=== PATIENT | female | born 1980 | race Caucasian/White ===

== ENCOUNTER 2017-01-12 17:19 | Emergency (ER) | payer OTHER ==
[2017-01-12 17:32] VITALS: BP 113/72
--- NOTE | 2017-01-12 17:50 | EDM.PDOC ---
ED HISTORY OF PRESENT ILLNESS - General Chief Complaint: Chest Pain Stated Complaint: CHEST PN, SOB, 27 WKS PG Time Seen by Provider: 01/12/17 17:45 Source of Information: Reports: Patient History Limitations: Reports: No limitations - History of Present Illness INITIAL COMMENTS - FREE TEXT/NARRATIVE: 36-year-old female presents the ED with a chief complaint of dyspnea. This is mostly on exertion but that time she feels that she can't get a deep breath initiation he develops a mild type headache that lasts only a few moments. Just arrest for short periods of time and can carry on. Note she is approximately 28 weeks gestation. This is 2 para one. No other complications of the . No history of DVT. Denies cough or sputum production no fever or chills. Reports asthma as a child but has not had use an inhaler for many years. No recent upper respiratory tract infections. Symptom Onset Date: 01/10/17 Timing/Duration: Reports: Day(s):, Getting worse, Gradual onset (Gradual onset over the last several days.) Severity: mild Location, General: Reports: chest (Just a subjective sense of shortness of breath. This can be at rest at x2. She really has no chest pain per se. Particularly no pleuritic chest pain.) Quality: Reports: Other (Subjective dyspnea.) Improves with: Reports: Rest Worsens with: Reports: Movement Context, General: Reports: Other (28 week gestation .). Denies: Activity, Exercise, Lifting, Sick contact, Trauma Associated Symptoms (General): Reports: shortness of breath. 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 (see below) (See history of present illness) - Related Data Allergies/ADRs: Allergies Allergy/AdvReac Type Severity Reaction Status Date / Time Penicillins Allergy Hives Verified 01/12/17 17:24 Home Meds: Home Meds Escitalopram Oxalate [Lexapro] 20 mg PO DAILY 02/05/14 [History] Famciclovir [Famvir] 3 tab PO ONETIME 09/16/16 [History] LORazepam [Ativan] 1 mg PO TID PRN 09/16/16 [History] Pnv95/Iron Fum/Folic Acid [ Caplet] 1 each PO DAILY 09/16/16 [History] Polyethylene Glycol 3350 [MiraLAX] 17 gm PO DAILY 09/16/16 [History] Past Medical History : 2 Para: 1 - Past Surgical History HEENT Surgical History: Reports: LASIK, Tonsillectomy Female Surgical History: Reports: section, Cystectomy Social & Family History - Tobacco Use Smoking Status *Q: Never Smoker Second Hand Smoke Exposure: No - Caffeine Use Caffeine Use: Reports: Soda - Alcohol Use Days Per Week of Alcohol Use: 0 - Recreational Drug Use Recreational Drug Use: No - Living Situation & Occupation Living situation: Reports: Occupation: employed ED ROS GENERAL - Review of Systems Review Of Systems: See Below Constitutional: Reports: fatigue. Denies: fever, chills, malaise, weakness, decreased appetite, weight loss HEENT: Reports: No symptoms Respiratory: Reports: Shortness of Breath. Denies: Wheezing, Pleuritic Chest Pain, Cough, Sputum, Hemoptysis, Other Cardiovascular: Reports: Blood pressure problem, Dyspnea on exertion. Denies: Chest pain, Claudication (Blood pressure runs low.), Edema, Lightheadedness, Orthopnea, Palpitations, PND, Syncope (Mild) Endocrine: Reports: fatigue GI/Abdominal: Reports: No symptoms : Reports: no symptoms Musculoskeletal: Reports: no symptoms Skin: Reports: no symptoms Neurological: Reports: No Symptoms Psychiatric: Reports: No symptoms Hematologic/Lymphatic: Reports: no symptoms Immunologic: Reports: no symptoms ED EXAM, GENERAL - Physical Exam Exam: See Below Exam Limited By: No limitations General Appearance: alert, WD/WN, no apparent distress, anxious, other (Vital signs are normal with O2 sats 98% on room air. BP 113/72. Respiratory to 14.) Eye Exam: bilateral eye: normal inspection Throat/Mouth: Normal inspection, Normal lips, Normal oropharynx Head: atraumatic, normocephalic Neck: normal inspection, supple, non-tender, full range of motion. No: lymphadenopathy (L), lymphadenopathy (R) Respiratory/Chest: no respiratory distress, lungs clear, normal breath sounds, no accessory muscle use, chest non-tender. No: respiratory distress Cardiovascular: normal peripheral pulses, regular rate, rhythm, no edema, no gallop, no murmur Peripheral Pulses: 2+: posterior tibial (L), posterior tibial (R), dorsalis pedis (L), dorsalis pedis (R) GI/Abdominal: normal bowel sounds, soft, non tender, no organomegaly, no distention Back Exam: normal inspection, full range of motion, decreased range of motion, paraspinal tenderness (She has pain over the right thoracic 8 rib head area.). No: CVA tenderness (L), CVA tenderness (R) Extremities: normal inspection, normal range of motion, non-tender, no pedal edema, normal capillary refill, other (Calves are nontender and nonswollen with no edema. No evidence of lower extremity DVT.) Neurological: alert, oriented, CN II-XII intact, normal cognition Psychiatric: normal affect, normal mood Skin Exam: Warm, Dry, Intact, Normal color, No rash Course - Vital Signs Last Recorded V/S: Last Vital Signs Temp 36.4 C 01/12/17 17:27 Pulse 66 01/12/17 17:27 Resp 14 01/12/17 17:27 BP 113/72 01/12/17 17:27 Pulse Ox 98 01/12/17 17:27 - Orders/Labs/Meds Orders: Active Orders 24 hr Category Date Time Status DD [D-DIMER QUANTITATIVE] [COAG] Stat Lab 01/12/17 17:58 Received Labs: Laboratory Tests 01/12/17 01/12/17 Range/Units 17:58 17:58 WBC 14.26 H (3.98-10.04) K/mm3 RBC 3.54 L (3.98-5.22) M/mm3 Hgb 11.2 (11.2-15.7) gm/L Hct 33.4 L (34.1-44.9) % MCV 94.4 (79.4-94.8) fl MCH 31.6 (25.6-32.2) pg MCHC 33.5 (32.2-35.5) g/dl RDW Std Deviation 43.3 (36.4-46.3) fL Plt Count 246 (182-369) K/mm3 MPV 10.1 (9.4-12.3) fl Neutrophils % (Manual) 61 H (40-60) % Band Neutrophils % 0 (0-10) % Lymphocytes % (Manual) 22 (20-40) % Atypical Lymphs % 0 % Monocytes % (Manual) 16 H (2-10) % Eosinophils % (Manual) 1 (0.7-5.8) % Basophils % (Manual) 0 L (0.1-1.2) Platelet Estimate Adequate Plt Morphology Comment Normal Poikilocytosis 1+ slight Anisocytosis 1+ slight Macrocytosis 1+ slight Tear Drop Cells 1+ slight RBC Morph Comment Abnormal Sodium 136 (136-145) mEq/L Potassium 3.7 (3.5-5.1) mEq/L Chloride 102 (98-107) mEq/L Carbon Dioxide 23 (21-32) mEq/L Anion Gap 14.7 (5-15) BUN 10 (7-18) mg/dL Creatinine 0.7 (0.55-1.02) mg/dL Est Cr Clr Drug Dosing 117.23 mL/min Estimated GFR (MDRD) > 60 (>60) mL/min BUN/Creatinine Ratio 14.3 (14-18) Glucose 110 H (74-106) mg/dL Calcium 9.0 (8.5-10.1) mg/dL Total Bilirubin 0.2 (0.2-1.0) mg/dL AST 17 (15-37) U/L ALT 23 (14-59) U/L Alkaline Phosphatase 83 (46-116) U/L Total Protein 6.5 (6.4-8.2) g/dl Albumin 2.8 L (3.4-5.0) g/dl Globulin 3.7 gm/dL Albumin/Globulin Ratio 0.8 L (1-2) - Radiology Interpretation Free Text/Narrative:: 36-year-old female who is 28 weeks gestation presents the ED with subjective sensation of dyspnea. This time she just can't get enough air. She feels she has to stop and take extra breaths and it does develop a transient headache sometimes the last only a few moments. No cough no sputum production no fever no chills. Examination of the chest shows air entry to both lung recinos without any adventitial sounds. Heart was sinus no murmurs identified. Vital signs are all normal with a O2 sat 98% on room air respiratory to 14 blood pressure 113/ 72 heart rate of 80. I suspect she is just feeling more short of breath probably probably would do to the pressure of the elevated fundus on the diaphragm. However will have routine labs performed and a d-dimer. - Re-Assessments/Exams Free Text/Narrative Re-Assessment/Exam: 01/12/17 18:40 labs reveal an elevated white count at 14.26 with normal differential 61%. This is normal in . Hemoglobin is low 11.2 again normal in HEENT hematocrit 33.4. Glucose 110 albumin fraction slightly low at 2.8. Renal function normal. D-dimer is still pending, recognizing that it is for the most part not very utile in . Departure - Departure Time of Disposition: 18:49 Disposition: Home, Self-Care 01 Condition: fair Clinical Impression: Second trimester , Dyspnea or other respiratory complaints Forms: ED Department Discharge Additional Instructions: Evaluation James today in regards to subjective sensation of being short of breath and having to take extra breaths periodically. This is in concert with being 28 weeks . Examination of the heart and lungs revealed no abnormalities. Lab work also revealed only minimal anemia with a hemoglobin of 11.2 which is lower limit of normal in . No other abnormalities were identified to cause you to become more short of breath. I suspect it is the itself with pushing up on the diaphragm shortening of the ability of the lungs to expand at times and an intermittent need to take extra breaths to maintain oxygen levels in your blood. I suspect the subjective dyspnea sensation will continue until the end of the . Followup with your OB/ SET ILLUSTRATOR if any other problems develop. - My Orders Last 24 Hours: My Active Orders 01/12/17 17:58 DD [D-DIMER QUANTITATIVE] [COAG] Stat - Assessment/Plan Last 24 Hours: My Active Orders 01/12/17 17:58 DD [D-DIMER QUANTITATIVE] [COAG] Stat
== END 2017-01-12 19:05 | disposition home or self-care (01) ==
LOC: JD.ED 17:19
DX: O99.89 Other specified diseases and conditions complicating pregnancy, childbirth and the puerperium (principal); R06.00 Dyspnea, unspecified; Z3A.28 28 weeks gestation of pregnancy; Z98.890 Other specified postprocedural states; Z79.899 Other long term (current) drug therapy; Z88.0 Allergy status to penicillin
CPT/HCPCS: 36415; 80053; 85025; 85379; 99283; 99285

== ENCOUNTER 2017-04-07 05:47 | Inpatient (IN) | payer OTHER ==
[~2017-04-07 05:47] MED LIST: Citric Acid/Sodium Citrate Solution 30 ML Cup PO ONE; Lactated Ringers 1,000 ML IV SCH; Metoclopramide 10 MG/2 ML SDV IVPUSH ONE; Oxytocin/Lactated Ringers 10 UNIT/1,000 ML BAG IV SCH; Sodium Chloride 0.9% 10 ML Syringe FLUSH PRN; ceFAZolin 2 GM in Premix Bag 1 BAG IV ONE
[2017-04-07] MEDS ORDERED: Bupivacaine 0.5% 30 ML SDV ONE (06:58)
[2017-04-07] MEDS ORDERED: Morphine PF 10 MG/10 ML SDV ONE (07:00)
[2017-04-07] MEDS ORDERED: ceFAZolin 1 GM Vial ONE (07:00)
[2017-04-07] MEDS ORDERED: Lactated Ringers 1,000 ML ONE ×2 (07:00→08:32)
[2017-04-07] MEDS ORDERED: Ondansetron 4 MG/2 ML SDV ONE (07:00)
--- NOTE | 2017-04-07 07:17 | PCM.PREANE ---
Preanesthetic Assessment - Anesthesia/Transfusion/Family Hx Anesthesia History: Prior Anesthesia Without Reaction Type of Anesthesia Reaction: Unknown Family History of Anesthesia Reaction: No Transfusion History: No Prior Transfusion(s) - Review of Systems General: No Symptoms Pulmonary: Other (seasonal allergies, takes singulair) Cardiovascular: No Symptoms Gastrointestinal: No symptoms, Other (heartburn with ) Neurological: No Symptoms Other: Reports: Anxiety - Physical Assessment NPO Status Date: 04/07/17 NPO Status Time: 00:01 Pulse: 64 O2 Sat by Pulse Oximetry: 96 Respiratory Rate: 16 Blood Pressure: 112/71 Height: 1.75 m Weight: 85.729 kg ASA Class: 2 Mental Status: Alert & Oriented x3 Airway Class: Mallampati = 2 Dentition: Reports: Normal Dentition Thyro-Mental Finger Breadths: 3 Mouth Opening Finger Breadths: 3 ROM/Head Extension: Full Lungs: Clear to auscultation, Normal respiratory effort Cardiovascular: Regular Rate, Regular Rhythm - Lab Values: Laboratory Last Values WBC 9.90 K/mm3 (3.98-10.04) 04/06/17 11:48 RBC 3.77 M/mm3 (3.98-5.22) L 04/06/17 11:48 Hgb 11.5 gm/L (11.2-15.7) 04/06/17 11:48 Hct 34.9 % (34.1-44.9) 04/06/17 11:48 MCV 92.6 fl (79.4-94.8) 04/06/17 11:48 MCH 30.5 pg (25.6-32.2) 04/06/17 11:48 MCHC 33.0 g/dl (32.2-35.5) 04/06/17 11:48 RDW Std Deviation 41.8 fL (36.4-46.3) 04/06/17 11:48 Plt Count 221 K/mm3 (182-369) 04/06/17 11:48 MPV 11.6 fl (9.4-12.3) 04/06/17 11:48 Neut % (Auto) 65.4 % (34.0-71.1) 04/06/17 11:48 Lymph % (Auto) 18.9 % (19.3-51.7) L 04/06/17 11:48 Taney % (Auto) 14.1 % (4.7-12.5) H 04/06/17 11:48 Eos % (Auto) 0.6 (0.7-5.8) L 04/06/17 11:48 Baso % (Auto) 0.2 % (0.1-1.2) 04/06/17 11:48 Neut # (Auto) 6.47 K/mm3 (1.56-6.13) H 04/06/17 11:48 Lymph # (Auto) 1.87 K/mm3 (1.18-3.74) 04/06/17 11:48 Taney # (Auto) 1.40 K/mm3 (0.24-0.36) H 04/06/17 11:48 Eos # (Auto) 0.06 K/mm3 (0.04-0.36) 04/06/17 11:48 Baso # (Auto) 0.02 K/mm3 (0.01-0.08) 04/06/17 11:48 Blood Type A POSITIVE 04/06/17 11:48 Gel Antibody Screen Negative 04/06/17 11:48 - Allergies Allergies/Adverse Reactions: Allergies Allergy/AdvReac Type Severity Reaction Status Date / Time Penicillins Allergy Hives Verified 01/12/17 17:24 - Blood Blood Available: No Product(s) Available: None - Anesthesia Plan Pre-Op Medication Ordered: None - Acknowledgements Anesthesia Type Planned: Spinal Pt an Appropriate Candidate for the Planned Anesthesia: Yes Alternatives and Risks of Anesthesia Discussed w Pt/Guardian: Yes Pt/Guardian Understands and Agrees with Anesthesia Plan: Yes PreAnesthesia Questionnaire - Past Surgical History Female Surgical History: Reports: Section, Cystectomy - SUBSTANCE USE Smoking Status *Q: Never Smoker Second Hand Smoke Exposure: No Days Per Week of Alcohol Use: 0 Recreational Drug Use History: No - HOME MEDS Home Medications: Home Meds Escitalopram Oxalate [Lexapro] 20 mg PO DAILY 02/05/14 [History] Famciclovir [Famvir] 3 tab PO ONETIME 09/16/16 [History] LORazepam [Ativan] 1 mg PO TID PRN 09/16/16 [History] Pnv95/Iron Fum/Folic Acid [ Caplet] 1 each PO DAILY 09/16/16 [History] Polyethylene Glycol 3350 [MiraLAX] 17 gm PO DAILY 09/16/16 [History] - CURRENT (IN HOUSE) MEDS Current Meds: Current Medications Lactated Ringer's (Ringers, Lactated) 1,000 mls @ 125 mls/hr IV ASDIRECTED [facility] Last Admin: 04/07/17 06:57 Dose: 125 mls/hr Oxytocin/Lactated Ringer's (Pitocin In Lr 10 Units/1,000 Ml) 10 unit in 1,000 mls @ 100 mls/hr IV ASDIRECTED [facility] PRN Reason: Protocol Sodium Chloride (Saline Flush) 10 ml FLUSH ASDIRECTED PRN PRN Reason: Keep Vein Open Discontinued Medications Bupivacaine HCl (Marcaine 0.5%) Confirm Administered Dose 30 ml .ROUTE .STK-MED ONE Stop: 04/07/17 06:59 Cefazolin Sodium (Ancef) Confirm Administered Dose 2 gm .ROUTE .STK-MED ONE Stop: 04/07/17 07:01 Citric Acid/Sodium Citrate (Bicitra Solution) 30 ml PO ONETIME ONE Stop: 04/07/17 03:04 Cefazolin Sodium/Dextrose 2 gm (/ Premix) 50 mls @ 100 mls/hr IV ONETIME ONE Stop: 04/07/17 03:32 Lactated Ringer's (Ringers, Lactated) Confirm Administered Dose 1,000 mls @ as directed .ROUTE .STK-MED ONE Stop: 04/07/17 07:01 Metoclopramide HCl (Reglan) 10 mg IVPUSH ONETIME ONE Stop: 04/07/17 03:04 Morphine Sulfate (Duramorph Pf) Confirm Administered Dose 10 mg .ROUTE .STK-MED ONE Stop: 04/07/17 07:01 Ondansetron HCl (Zofran) Confirm Administered Dose 4 mg .ROUTE .STK-MED ONE Stop: 04/07/17 07:01
[2017-04-07] MEDS ORDERED: fentaNYL 100 MCG/2 ML SDV IVPUSH PRN (07:18)
[2017-04-07] MEDS ORDERED: Ondansetron 4 MG/2 ML SDV IVPUSH PRN (07:18)
[2017-04-07] MEDS ORDERED: Citric Acid/Sodium Citrate Solution 30 ML Cup ONE (07:46)
[2017-04-07] MEDS ORDERED: Metoclopramide 10 MG/2 ML SDV ONE (07:46)
[2017-04-07] MEDS ORDERED: Oxytocin 10 Units/1 ML SDV ONE (08:32)
[2017-04-07] MEDS ORDERED: ePHEDrine 50 MG/ML SDV IVPUSH PRN (08:57)
[2017-04-07] MEDS ORDERED: Ketorolac 30 MG/ML SDV IVPUSH ONE (08:57)
[2017-04-07] MEDS ORDERED: diphenhydrAMINE 50 MG/ML SDV IVPUSH PRN (08:57)
[2017-04-07] MEDS ORDERED: Lanolin 100% Cream 7 GM Tube TOP PRN (08:57)
[2017-04-07] MEDS ORDERED: Naloxone 0.4 MG/ML SDV IVPUSH PRN (08:57)
[2017-04-07] MEDS ORDERED: Witch Hazel Medicated Pads 100/Jar TOP PRN (08:57)
--- NOTE | 2017-04-07 08:57 | PCM.POSTAN ---
POST ANESTHESIA ASSESSMENT - MENTAL STATUS Mental Status: alert, oriented - VITAL SIGNS Pulse Rate: 61 SaO2: 93 Resp Rate: 16 Blood Pressure: 101/48 Temperature: 36.7 C - RESPIRATORY Respiratory Status: respiratory rate WNL, airway patent, O2 saturation stable - CARDIOVASCULAR CV Status: pulse rate WNL, blood pressure stable - GASTROINTESTINAL GI Status: no symptoms - PAIN Pain Score: 0 - POST OP HYDRATION Hydration Status: adequate & stable
[2017-04-07] MEDS ORDERED: Dextrose 5%-Lactated Ringers 1,000 ML IV SCH (09:00)
[2017-04-07] MEDS ORDERED: Dextrose 5%-0.45% NaCl 1,000 ML IV SCH (09:00)
--- NOTE | 2017-04-07 09:07 | PCM.OPNOTE ---
- General Post-Op/Procedure Note Date of Surgery/Procedure: 04/07/17 Operative Procedure(s): repeat section Findings: viable male, APGARS 7/9, normal uterus tubes and ovaries, 7#14 oz Pre Op Diagnosis: prior . Term . Post-Op Diagnosis: Same Anesthesia Technique: Spinal Primary Surgeon: Ana Ibarra Anesthesia Provider: Nancy Salazar Fluid Replacement, Intraop: 2,200 Output, Urine Amount: 125 EBL in mLs: 750 Complications: None Condition: Good Free Text/Narrative:: The patient was taken to the operating room where epidural anesthesia was dosed to surgical levels without difficulty. The patient was prepped and draped in the usual sterile fashion in the dorsal supine position with a leftward tilt. A Pfannenstiel skin incision was made with the scalpel and carried through to the underlying layer of fascia. The fascia was incised in the midline and extended laterally using Angeles scissors. Yayo clamps were used to elevate the superior aspect of the fascial incision, which was elevated, and the underlying rectus muscles were dissected off bluntly and using Angeles scissors. Attention was then turned to the inferior aspect of the fascial incision, which in similar fashion was grasped with Yayo clamps, elevated, and the underlying rectus muscles were dissected off bluntly and using the angeles. The rectus muscles were dissected in the midline. The peritoneum was entered bluntly; this incision was extended superiorly and inferiorly with good visualization of the bladder. The bladder blade was inserted. The vesicouterine peritoneum was identified and entered sharply using Metzenbaum scissors. This incision was extended laterally and the bladder flap was created digitally. The bladder blade was reinserted. The lower uterine segment was incised in a transverse fashion using the scalpel and with digital traction. Clear fluid was noted. The was subsequently delivered by flexing the head to the incision. Body and shoulders followed without difficulty. The cord was clamped and cut. The infant was subsequently handed to the awaiting applications support lead whose presence had been requested.. The placenta was delivered spontaneously intact with a three-vessel cord noted. The uterus was exteriorized and cleared of all clots and debris. The uterine incision was repaired in 2 layers using 0 monocryl. Hemostasis was visualized. Hemostasis was visualized bilaterally. The uterus was returned to the abdomen. The uterine incision was reexamined and it was noted to be hemostatic. The pelvis was copiously irrigated. The fascia was closed with 1 PDS suture, and the skin was closed with 3-0 monocryl. Sponge, lap, and instrument counts were correct x2. The patient was stable at the completion of the procedure and was subsequently transferred to the recovery room in stable condition.
[2017-04-07] MEDS: diphenhydrAMINE 50 MG/ML SDV IVPUSH PRN (12:59)
[2017-04-07] MEDS: Ketorolac 30 MG/ML SDV IVPUSH SCH ×2 (15:14→21:36)
[2017-04-08] MEDS: diphenhydrAMINE 50 MG/ML SDV IVPUSH PRN (01:47)
[2017-04-08] MEDS: Ketorolac 30 MG/ML SDV IVPUSH SCH (03:40)
[2017-04-08] MEDS: Docusate Sodium 100 MG Cap PO PRN (08:07)
[2017-04-08] MEDS: Acetaminophen/oxyCODONE 325-5 MG Tab PO PRN ×4 (08:07→22:31)
--- NOTE | 2017-04-08 09:16 | PCM48HPAN ---
Post Anesthesia Note - EVALUATION WITHIN 48HRS OF ANESTHETIC Vital Signs in Normal Range: Yes Patient Participated in Evaluation: Yes Respiratory Function Stable: Yes Airway Patent: Yes Cardiovascular Function Stable: Yes Hydration Status Stable: Yes Pain Control Satisfactory: Yes Nausea and Vomiting Control Satisfactory: Yes Mental Status Recovered: Yes
[2017-04-08] MEDS ORDERED: LORazepam 1 MG Tab PO ONE (12:30)
[2017-04-08] MEDS: Ibuprofen 600 MG Tab PO PRN ×2 (16:46→22:52)
[2017-04-09] MEDS: Acetaminophen/oxyCODONE 325-5 MG Tab PO PRN ×4 (03:37→21:11)
[2017-04-09] MEDS: Ibuprofen 600 MG Tab PO PRN ×3 (04:54→19:12)
[2017-04-09] MEDS: Simethicone 80 MG Tab.Chew PO PRN ×3 (08:49→21:19)
[2017-04-09] MEDS: Docusate Sodium 100 MG Cap PO PRN ×2 (08:49→21:19)
[2017-04-10] MEDS: Acetaminophen/oxyCODONE 325-5 MG Tab PO PRN ×3 (02:05→10:59)
--- NOTE | 2017-04-10 07:04 | PCM.PNPP ---
- General Info Date of Service: 04/08/17 Functional Status: Reports: pain controlled - Review of Systems General: Reports: No Symptoms HEENT: Reports: no symptoms Pulmonary: Reports: no symptoms Cardiovascular: Reports: No Symptoms Gastrointestinal: Reports: No symptoms Genitourinary: Reports: no symptoms Musculoskeletal: Reports: no symptoms Skin: Reports: no symptoms Neurological: Reports: No Symptoms Psychiatric: Reports: no symptoms - General Info Date of Service: 04/08/17 - Patient Data Vital Signs - most recent: Last Vital Signs Temp 36.7 C 04/10/17 06:45 Pulse 64 04/10/17 06:45 Resp 15 04/10/17 06:45 BP 122/81 04/10/17 06:45 Pulse Ox 97 04/10/17 06:45 Weight - most recent: 85.729 kg Med Orders - Current: Current Medications Diphenhydramine HCl (Benadryl) 25 mg IVPUSH Q6H PRN PRN Reason: Itching or Nausea Docusate Sodium (Colace) 100 mg PO Q12H PRN PRN Reason: Constipation Last Admin: 04/09/17 21:19 Dose: 100 mg Emollient Ointment (Lansinoh Hpa) 0 gm TOP ASDIRECTED PRN PRN Reason: Sore Nipples Last Admin: 04/09/17 09:42 Dose: 1 applic Ephedrine Sulfate (Ephedrine Sulfate) 5 mg IVPUSH SEECOMMENT PRN PRN Reason: Other Ibuprofen (Motrin) 600 mg PO Q6H PRN PRN Reason: mild pain or fever Last Admin: 04/09/17 19:12 Dose: 600 mg Naloxone HCl (Narcan) 0.1 mg IVPUSH SEECOMMENT PRN PRN Reason: Respiratory Depression Ondansetron HCl (Zofran) 4 mg IVPUSH ONETIME PRN PRN Reason: Nausea/Vomiting Oxycodone/Acetaminophen (Percocet 325-5 Mg) 1 - 2 tab PO Q4H PRN PRN Reason: Pain Last Admin: 04/10/17 02:05 Dose: 2 tab Simethicone (Simethicone) 80 mg PO ASDIRECTED PRN PRN Reason: Gas Last Admin: 04/09/17 21:19 Dose: 80 mg Witch Britney (Tucks) 1 pad TOP ASDIRECTED PRN PRN Reason: Perineal Comfort Measure Discontinued Medications Bupivacaine HCl (Marcaine 0.5%) Confirm Administered Dose 30 ml .ROUTE .[facility] ONE Stop: 04/07/17 06:59 Last Admin: 04/07/17 08:06 Dose: 20 ml Cefazolin Sodium (Ancef) Confirm Administered Dose 2 gm .ROUTE .[facility] ONE Stop: 04/07/17 07:01 Citric Acid/Sodium Citrate (Bicitra Solution) 30 ml PO ONETIME ONE Stop: 04/07/17 03:04 Last Admin: 04/07/17 08:02 Dose: Not Given Citric Acid/Sodium Citrate (Bicitra Solution) Confirm Administered Dose 30 ml .ROUTE .[facility] ONE Stop: 04/07/17 07:47 Last Admin: 04/07/17 08:03 Dose: Not Given Diphenhydramine HCl (Benadryl) 25 mg IVPUSH Q6H PRN PRN Reason: itching Last Admin: 04/08/17 01:47 Dose: 25 mg Fentanyl (Sublimaze) 50 mcg IVPUSH Q5M PRN PRN Reason: pain Stop: 04/07/17 10:00 Lactated Ringer's (Ringers, Lactated) 1,000 mls @ 125 mls/hr IV ASDIRECTED [facility] Last Admin: 04/07/17 06:57 Dose: 125 mls/hr Oxytocin/Lactated Ringer's (Pitocin In Lr 10 Units/1,000 Ml) 10 unit in 1,000 mls @ 100 mls/hr IV ASDIRECTED [facility] PRN Reason: Protocol Cefazolin Sodium/Dextrose 2 gm (/ Premix) 50 mls @ 100 mls/hr IV ONETIME ONE Stop: 04/07/17 03:32 Last Admin: 04/07/17 08:02 Dose: Not Given Lactated Ringer's (Ringers, Lactated) Confirm Administered Dose 1,000 mls @ as directed .ROUTE .[facility] ONE Stop: 04/07/17 07:01 Lactated Ringer's (Ringers, Lactated) Confirm Administered Dose 1,000 mls @ as directed .ROUTE .[facility] ONE Stop: 04/07/17 08:33 Dextrose/Sodium Chloride (Dextrose 5%-1/2 Ns) 1,000 mls @ 125 mls/hr IV ASDIRECTED [facility] Dextrose/Lactated Ringer's (Dextrose 5%-Lactated Ringers) 1,000 mls @ 125 mls/ hr IV ASDIRECTED [facility] Stop: 04/07/17 16:59 Last Admin: 04/07/17 14:27 Dose: 125 mls/hr Ketorolac Tromethamine (Toradol) 30 mg IVPUSH ONETIME ONE Stop: 04/07/17 08:58 Last Admin: 04/07/17 09:04 Dose: 30 mg Ketorolac Tromethamine (Toradol) 30 mg IVPUSH Q6H [facility] Stop: 04/08/17 03:01 Last Admin: 04/08/17 03:40 Dose: 30 mg Lorazepam (Ativan) 1 mg PO ONETIME ONE Stop: 04/08/17 12:31 Last Admin: 04/08/17 12:32 Dose: 1 mg Metoclopramide HCl (Reglan) 10 mg IVPUSH ONETIME ONE Stop: 04/07/17 03:04 Last Admin: 04/07/17 08:02 Dose: Not Given Metoclopramide HCl (Reglan) Confirm Administered Dose 10 mg .ROUTE .STK-MED ONE Stop: 04/07/17 07:47 Last Admin: 04/07/17 08:03 Dose: Not Given Morphine Sulfate (Duramorph Pf) Confirm Administered Dose 10 mg .ROUTE .STK-MED ONE Stop: 04/07/17 07:01 Ondansetron HCl (Zofran) Confirm Administered Dose 4 mg .ROUTE .STK-MED ONE Stop: 04/07/17 07:01 Oxycodone/Acetaminophen (Percocet 325-5 Mg) 1 tab PO Q4H PRN PRN Reason: Pain Last Admin: 04/09/17 03:37 Dose: 1 tab Oxytocin (Pitocin) Confirm Administered Dose 10 unit .ROUTE .STK-MED ONE Stop: 04/07/17 08:33 Sodium Chloride (Saline Flush) 10 ml FLUSH ASDIRECTED PRN PRN Reason: Keep Vein Open - Infant Interaction Support Person: - Recovery Exam Fundal Tone: Firm Fundal Level: 1 Fingerbreadths Below Umbilicus Fundal Placement: Midline Lochia Amount: Scant Lochia Color: Rubra/Red Perineum Description: Intact, Minimal Bruising/Swelling Episiotomy/Laceration: None Bladder Status: Voiding Urinary Elimination: Voided Other Urinary Elimination, : just removed perez catheter, no void yet. - Exam General: alert, oriented HEENT: Pupils equal Neck: supple Lungs: Clear to auscultation, Normal respiratory effort Cardiovascular: Regular Rate, Regular Rhythm Abdomen: bowel sounds present, soft, no tenderness, no distension Extremities: no edema Skin: warm, dry, intact Wound/Incisions: healing well Neurological: no new focal deficit Psy/Mental Status: alert, normal affect, normal mood - Problem List Review Problem List Initiated/Reviewed/Updated: Yes - My Orders Last 24 Hours: My Active Orders 04/09/17 07:02 Acetaminophen/oxyCODONE [Percocet 325-5 MG] 1 - 2 tab PO Q4H PRN 04/09/17 08:42 Simethicone 80 mg PO ASDIRECTED PRN 04/10/17 07:02 Ready for Discharge [RC] PER UNIT ROUTINE - Assessment Assessment:: POD1 Doing great. - Plan Plan:: Routine cares.
--- NOTE | 2017-04-10 07:06 | PCM.PNPP ---
- General Info Date of Service: 04/09/17 Functional Status: Reports: pain controlled - Review of Systems General: Reports: No Symptoms HEENT: Reports: no symptoms Pulmonary: Reports: no symptoms Cardiovascular: Reports: No Symptoms Gastrointestinal: Reports: No symptoms Genitourinary: Reports: no symptoms Musculoskeletal: Reports: no symptoms Skin: Reports: no symptoms Neurological: Reports: No Symptoms Psychiatric: Reports: no symptoms - General Info Date of Service: 04/09/17 - Patient Data Vital Signs - most recent: Last Vital Signs Temp 36.7 C 04/10/17 06:45 Pulse 64 04/10/17 06:45 Resp 15 04/10/17 06:45 BP 122/81 04/10/17 06:45 Pulse Ox 97 04/10/17 06:45 Weight - most recent: 85.729 kg Med Orders - Current: Current Medications Diphenhydramine HCl (Benadryl) 25 mg IVPUSH Q6H PRN PRN Reason: Itching or Nausea Docusate Sodium (Colace) 100 mg PO Q12H PRN PRN Reason: Constipation Last Admin: 04/09/17 21:19 Dose: 100 mg Emollient Ointment (Lansinoh Hpa) 0 gm TOP ASDIRECTED PRN PRN Reason: Sore Nipples Last Admin: 04/09/17 09:42 Dose: 1 applic Ephedrine Sulfate (Ephedrine Sulfate) 5 mg IVPUSH SEECOMMENT PRN PRN Reason: Other Ibuprofen (Motrin) 600 mg PO Q6H PRN PRN Reason: mild pain or fever Last Admin: 04/09/17 19:12 Dose: 600 mg Naloxone HCl (Narcan) 0.1 mg IVPUSH SEECOMMENT PRN PRN Reason: Respiratory Depression Ondansetron HCl (Zofran) 4 mg IVPUSH ONETIME PRN PRN Reason: Nausea/Vomiting Oxycodone/Acetaminophen (Percocet 325-5 Mg) 1 - 2 tab PO Q4H PRN PRN Reason: Pain Last Admin: 04/10/17 02:05 Dose: 2 tab Simethicone (Simethicone) 80 mg PO ASDIRECTED PRN PRN Reason: Gas Last Admin: 04/09/17 21:19 Dose: 80 mg Witch Britney (Tucks) 1 pad TOP ASDIRECTED PRN PRN Reason: Perineal Comfort Measure Discontinued Medications Bupivacaine HCl (Marcaine 0.5%) Confirm Administered Dose 30 ml .ROUTE .[facility] ONE Stop: 04/07/17 06:59 Last Admin: 04/07/17 08:06 Dose: 20 ml Cefazolin Sodium (Ancef) Confirm Administered Dose 2 gm .ROUTE .[facility] ONE Stop: 04/07/17 07:01 Citric Acid/Sodium Citrate (Bicitra Solution) 30 ml PO ONETIME ONE Stop: 04/07/17 03:04 Last Admin: 04/07/17 08:02 Dose: Not Given Citric Acid/Sodium Citrate (Bicitra Solution) Confirm Administered Dose 30 ml .ROUTE .[facility] ONE Stop: 04/07/17 07:47 Last Admin: 04/07/17 08:03 Dose: Not Given Diphenhydramine HCl (Benadryl) 25 mg IVPUSH Q6H PRN PRN Reason: itching Last Admin: 04/08/17 01:47 Dose: 25 mg Fentanyl (Sublimaze) 50 mcg IVPUSH Q5M PRN PRN Reason: pain Stop: 04/07/17 10:00 Lactated Ringer's (Ringers, Lactated) 1,000 mls @ 125 mls/hr IV ASDIRECTED [facility] Last Admin: 04/07/17 06:57 Dose: 125 mls/hr Oxytocin/Lactated Ringer's (Pitocin In Lr 10 Units/1,000 Ml) 10 unit in 1,000 mls @ 100 mls/hr IV ASDIRECTED [facility] PRN Reason: Protocol Cefazolin Sodium/Dextrose 2 gm (/ Premix) 50 mls @ 100 mls/hr IV ONETIME ONE Stop: 04/07/17 03:32 Last Admin: 04/07/17 08:02 Dose: Not Given Lactated Ringer's (Ringers, Lactated) Confirm Administered Dose 1,000 mls @ as directed .ROUTE .[facility] ONE Stop: 04/07/17 07:01 Lactated Ringer's (Ringers, Lactated) Confirm Administered Dose 1,000 mls @ as directed .ROUTE .[facility] ONE Stop: 04/07/17 08:33 Dextrose/Sodium Chloride (Dextrose 5%-1/2 Ns) 1,000 mls @ 125 mls/hr IV ASDIRECTED [facility] Dextrose/Lactated Ringer's (Dextrose 5%-Lactated Ringers) 1,000 mls @ 125 mls/ hr IV ASDIRECTED [facility] Stop: 04/07/17 16:59 Last Admin: 04/07/17 14:27 Dose: 125 mls/hr Ketorolac Tromethamine (Toradol) 30 mg IVPUSH ONETIME ONE Stop: 04/07/17 08:58 Last Admin: 04/07/17 09:04 Dose: 30 mg Ketorolac Tromethamine (Toradol) 30 mg IVPUSH Q6H [facility] Stop: 04/08/17 03:01 Last Admin: 04/08/17 03:40 Dose: 30 mg Lorazepam (Ativan) 1 mg PO ONETIME ONE Stop: 04/08/17 12:31 Last Admin: 04/08/17 12:32 Dose: 1 mg Metoclopramide HCl (Reglan) 10 mg IVPUSH ONETIME ONE Stop: 04/07/17 03:04 Last Admin: 04/07/17 08:02 Dose: Not Given Metoclopramide HCl (Reglan) Confirm Administered Dose 10 mg .ROUTE .[facility] ONE Stop: 04/07/17 07:47 Last Admin: 04/07/17 08:03 Dose: Not Given Morphine Sulfate (Duramorph Pf) Confirm Administered Dose 10 mg .ROUTE .[facility] ONE Stop: 04/07/17 07:01 Ondansetron HCl (Zofran) Confirm Administered Dose 4 mg .ROUTE .[facility] ONE Stop: 04/07/17 07:01 Oxycodone/Acetaminophen (Percocet 325-5 Mg) 1 tab PO Q4H PRN PRN Reason: Pain Last Admin: 04/09/17 03:37 Dose: 1 tab Oxytocin (Pitocin) Confirm Administered Dose 10 unit .ROUTE .[facility] ONE Stop: 04/07/17 08:33 Sodium Chloride (Saline Flush) 10 ml FLUSH ASDIRECTED PRN PRN Reason: Keep Vein Open - Infant Interaction Support Person: - Recovery Exam Fundal Tone: Firm Fundal Level: 1 Fingerbreadths Below Umbilicus Fundal Placement: Midline Lochia Amount: Scant Lochia Color: Rubra/Red Perineum Description: Intact, Minimal Bruising/Swelling Episiotomy/Laceration: None Bladder Status: Voiding Urinary Elimination: Voided Other Urinary Elimination, : just removed perez catheter, no void yet. - Exam General: alert, oriented HEENT: Pupils equal Neck: supple Lungs: Clear to auscultation, Normal respiratory effort Cardiovascular: Regular Rate, Regular Rhythm Abdomen: bowel sounds present, soft, no tenderness, no distension Extremities: no edema Skin: warm, dry, intact Wound/Incisions: healing well Neurological: no new focal deficit Psy/Mental Status: alert, normal affect, normal mood - Problem List Review Problem List Initiated/Reviewed/Updated: Yes - My Orders Last 24 Hours: My Active Orders 04/09/17 07:02 Acetaminophen/oxyCODONE [Percocet 325-5 MG] 1 - 2 tab PO Q4H PRN 04/09/17 08:42 Simethicone 80 mg PO ASDIRECTED PRN 04/10/17 07:02 Ready for Discharge [RC] PER UNIT ROUTINE - Assessment Assessment:: POD2 Doing great. - Plan Plan:: Routine cares. Doing great. Likely home tomorrow.
--- NOTE | 2017-04-10 07:10 | PCM.DCSUM1 ---
Discharge Summary - Hospital Course Brief History: Term . Doing great. Home tomorrow. - Discharge Data Discharge Date: 04/10/17 Discharge Disposition: Home, Self-Care 01 Condition: Good - Patient Summary/Data Operative Procedure(s) Performed: repeat section - Patient Instructions Diet: Usual Diet as Tolerated Activity: No Strenuous Activities Activity, Other: pelvic rest Driving: May Drive Today Showering/Bathing: May Shower Wound/Incision Care: Keep Operative Site/Wound Site Clean and Dry Notify Provider of: Fever, Increased Pain, Swelling and Redness - Discharge Plan Home Medications: Home Meds Escitalopram Oxalate [Lexapro] 20 mg PO DAILY 02/05/14 [History] Famciclovir [Famvir] 3 tab PO ONETIME 09/16/16 [History] LORazepam [Ativan] 1 mg PO TID PRN 09/16/16 [History] Pnv95/Iron Fum/Folic Acid [ Caplet] 1 each PO DAILY 09/16/16 [History] Polyethylene Glycol 3350 [MiraLAX] 17 gm PO DAILY 09/16/16 [History] - Discharge Summary/Plan Comment DC Time >30 min.: No - General Info Date of Service: 04/10/17 Functional Status: Reports: pain controlled - Review of Systems General: Reports: No Symptoms HEENT: Reports: no symptoms Pulmonary: Reports: no symptoms Cardiovascular: Reports: No Symptoms Gastrointestinal: Reports: No symptoms Genitourinary: Reports: no symptoms Musculoskeletal: Reports: no symptoms Skin: Reports: no symptoms Neurological: Reports: No Symptoms Psychiatric: Reports: no symptoms - Patient Data Vitals - Most Recent: Last Vital Signs Temp 36.7 C 04/10/17 06:45 Pulse 64 04/10/17 06:45 Resp 15 04/10/17 06:45 BP 122/81 04/10/17 06:45 Pulse Ox 97 04/10/17 06:45 Weight - Most Recent: 85.729 kg Med Orders - Current: Current Medications Diphenhydramine HCl (Benadryl) 25 mg IVPUSH Q6H PRN PRN Reason: Itching or Nausea Docusate Sodium (Colace) 100 mg PO Q12H PRN PRN Reason: Constipation Last Admin: 04/09/17 21:19 Dose: 100 mg Emollient Ointment (Lansinoh Hpa) 0 gm TOP ASDIRECTED PRN PRN Reason: Sore Nipples Last Admin: 04/09/17 09:42 Dose: 1 applic Ephedrine Sulfate (Ephedrine Sulfate) 5 mg IVPUSH SEECOMMENT PRN PRN Reason: Other Ibuprofen (Motrin) 600 mg PO Q6H PRN PRN Reason: mild pain or fever Last Admin: 04/09/17 19:12 Dose: 600 mg Naloxone HCl (Narcan) 0.1 mg IVPUSH SEECOMMENT PRN PRN Reason: Respiratory Depression Ondansetron HCl (Zofran) 4 mg IVPUSH ONETIME PRN PRN Reason: Nausea/Vomiting Oxycodone/Acetaminophen (Percocet 325-5 Mg) 1 - 2 tab PO Q4H PRN PRN Reason: Pain Last Admin: 04/10/17 02:05 Dose: 2 tab Simethicone (Simethicone) 80 mg PO ASDIRECTED PRN PRN Reason: Gas Last Admin: 04/09/17 21:19 Dose: 80 mg Witch Britney (Tucks) 1 pad TOP ASDIRECTED PRN PRN Reason: Perineal Comfort Measure Discontinued Medications Bupivacaine HCl (Marcaine 0.5%) Confirm Administered Dose 30 ml .ROUTE .[facility] ONE Stop: 04/07/17 06:59 Last Admin: 04/07/17 08:06 Dose: 20 ml Cefazolin Sodium (Ancef) Confirm Administered Dose 2 gm .ROUTE .[facility] ONE Stop: 04/07/17 07:01 Citric Acid/Sodium Citrate (Bicitra Solution) 30 ml PO ONETIME ONE Stop: 04/07/17 03:04 Last Admin: 04/07/17 08:02 Dose: Not Given Citric Acid/Sodium Citrate (Bicitra Solution) Confirm Administered Dose 30 ml .ROUTE .[facility] ONE Stop: 04/07/17 07:47 Last Admin: 04/07/17 08:03 Dose: Not Given Diphenhydramine HCl (Benadryl) 25 mg IVPUSH Q6H PRN PRN Reason: itching Last Admin: 04/08/17 01:47 Dose: 25 mg Fentanyl (Sublimaze) 50 mcg IVPUSH Q5M PRN PRN Reason: pain Stop: 04/07/17 10:00 Lactated Ringer's (Ringers, Lactated) 1,000 mls @ 125 mls/hr IV ASDIRECTED [facility] Last Admin: 04/07/17 06:57 Dose: 125 mls/hr Oxytocin/Lactated Ringer's (Pitocin In Lr 10 Units/1,000 Ml) 10 unit in 1,000 mls @ 100 mls/hr IV ASDIRECTED [facility] PRN Reason: Protocol Cefazolin Sodium/Dextrose 2 gm (/ Premix) 50 mls @ 100 mls/hr IV ONETIME ONE Stop: 04/07/17 03:32 Last Admin: 04/07/17 08:02 Dose: Not Given Lactated Ringer's (Ringers, Lactated) Confirm Administered Dose 1,000 mls @ as directed .ROUTE .[facility] ONE Stop: 04/07/17 07:01 Lactated Ringer's (Ringers, Lactated) Confirm Administered Dose 1,000 mls @ as directed .ROUTE .[facility] ONE Stop: 04/07/17 08:33 Dextrose/Sodium Chloride (Dextrose 5%-1/2 Ns) 1,000 mls @ 125 mls/hr IV ASDIRECTED [facility] Dextrose/Lactated Ringer's (Dextrose 5%-Lactated Ringers) 1,000 mls @ 125 mls/ hr IV ASDIRECTED [facility] Stop: 04/07/17 16:59 Last Admin: 04/07/17 14:27 Dose: 125 mls/hr Ketorolac Tromethamine (Toradol) 30 mg IVPUSH ONETIME ONE Stop: 04/07/17 08:58 Last Admin: 04/07/17 09:04 Dose: 30 mg Ketorolac Tromethamine (Toradol) 30 mg IVPUSH Q6H [facility] Stop: 04/08/17 03:01 Last Admin: 04/08/17 03:40 Dose: 30 mg Lorazepam (Ativan) 1 mg PO ONETIME ONE Stop: 04/08/17 12:31 Last Admin: 04/08/17 12:32 Dose: 1 mg Metoclopramide HCl (Reglan) 10 mg IVPUSH ONETIME ONE Stop: 04/07/17 03:04 Last Admin: 04/07/17 08:02 Dose: Not Given Metoclopramide HCl (Reglan) Confirm Administered Dose 10 mg .ROUTE .[facility] ONE Stop: 04/07/17 07:47 Last Admin: 04/07/17 08:03 Dose: Not Given Morphine Sulfate (Duramorph Pf) Confirm Administered Dose 10 mg .ROUTE .[facility] ONE Stop: 04/07/17 07:01 Ondansetron HCl (Zofran) Confirm Administered Dose 4 mg .ROUTE .[facility] ONE Stop: 04/07/17 07:01 Oxycodone/Acetaminophen (Percocet 325-5 Mg) 1 tab PO Q4H PRN PRN Reason: Pain Last Admin: 04/09/17 03:37 Dose: 1 tab Oxytocin (Pitocin) Confirm Administered Dose 10 unit .ROUTE .[facility] ONE Stop: 04/07/17 08:33 Sodium Chloride (Saline Flush) 10 ml FLUSH ASDIRECTED PRN PRN Reason: Keep Vein Open - Exam General: Reports: alert, oriented HEENT: Reports: Pupils equal, Pupils reactive, EOMI, Mucous membr. moist/pink Neck: Reports: supple Lungs: Reports: Clear to auscultation, Normal respiratory effort Cardiovascular: Reports: Regular Rate, Regular Rhythm Abdomen: Reports: bowel sounds present, soft, no tenderness, no distension (Female) Exam: Normal External Exam, Normal Speculum Exam, Normal Bimanual Exam Back Exam: Reports: Normal Inspection, Full Range of Motion Extremities: Reports: no edema, normal pulses Skin: Reports: warm, dry, intact Wound/Incisions: Reports: healing well Neurological: Reports: no new focal deficit Psy/Mental Status: Reports: alert, normal affect, normal mood *Q Meaningful Use (DIS) - VTE *Q VTE Criteria *Q: - Stroke *Q Stroke Criteria *Q: - AMI *Q AMI Criteria *Q:
[2017-04-10 12:42] VITALS: BP 117/74
== END 2017-04-10 11:05 | disposition home or self-care (01) | DRG 766 ==
LOC: JD.OB 05:47
PROVIDERS: ADMIT Obstetrics & Gynecology; ATTEND Obstetrics & Gynecology
PROC: 10D00Z1 Extraction of Products of Conception, Low, Open Approach (ICD-10-PCS; principal; 2017-04-07)
DX: O34.211 Maternal care for low transverse scar from previous cesarean delivery (principal); Z3A.38 38 weeks gestation of pregnancy; Z37.0 Single live birth
CPT/HCPCS: 01961; 36415; 85025; 86850; 86900; 86901; A9270-GY; J0690; J1200; J1885; J2270; J2405; J2590; J7042; J7120

== ENCOUNTER 2018-04-22 16:28 | Emergency (ER) | payer OTHER ==
[2018-04-22 16:56] VITALS: BP 115/78
[2018-04-22] MEDS ORDERED: Sodium Chloride 0.9% 10 ML Syringe FLUSH PRN (18:08)
[2018-04-22] MEDS ORDERED: Sodium Chloride 0.9% 1,000 ML IV SCH (18:15)
--- NOTE | 2018-04-22 19:28 | EDM.PDOC ---
ED HPI GENERAL MEDICAL PROBLEM - General Chief Complaint: Gastrointestinal Problem Stated Complaint: STOMACH PAIN/BLOOD IN URIN Time Seen by Provider: 04/22/18 17:53 Source of Information: Reports: Patient, RN Notes Reviewed - History of Present Illness INITIAL COMMENTS - FREE TEXT/NARRATIVE: 37 year old female with onset of diarrheaabout 6 hours ago. Has been having some abd pain and cramping for about the past week or so. More severe abd pain and cramping with the onset of diarrhea. Had about 90 minutes of repetitive watery diarrhea. Rested for awhile. than had 2 episodes of further diarrhea with blood over the past few hours. She did eat a hamburger last evening that did seem a bit undercooked. Not aware of any other at risk food exposure. She has had some nausea but no vomiting. She is about 9 weeks . No hx of known prior GI problems. Abdominal Pain Score (Numeric/FACES): 6 - Related Data Allergies Allergy/AdvReac Type Severity Reaction Status Date / Time Penicillins Allergy Hives Verified 04/22/18 16:56 Home Meds: Home Meds Escitalopram Oxalate [Lexapro] 20 mg PO DAILY 02/05/14 [History] Famciclovir [Famvir] 3 tab PO ONETIME 09/16/16 [History] LORazepam [Ativan] 1 mg PO TID PRN 09/16/16 [History] Pnv95/Iron Fum/Folic Acid [ Caplet] 1 each PO DAILY 09/16/16 [History] Polyethylene Glycol 3350 [MiraLAX] 17 gm PO DAILY 09/16/16 [History] Acetaminophen/oxyCODONE [Percocet 325-5 MG] 1 - 2 tab PO Q4H PRN #10 tablet [Rx] Sulfamethoxazole/Trimethoprim [Bactrim Ds Tablet] 1 each PO Q12HR #7 tablet 09/28 [Rx] Past Medical History HEENT History: Reports: None Genitourinary History: Reports: None 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: Psychiatric History: Reports: Anxiety - Past Surgical History HEENT Surgical History: Reports: LASIK, Tonsillectomy Female Surgical History: Reports: Section, Cystectomy Social & Family History - Family History Family Medical History: Noncontributory - Tobacco Use Smoking Status *Q: Never Smoker - Caffeine Use Caffeine Use: Reports: Coffee, Soda, Tea Other Caffeine Use: 3 12 oz can per day of Diet Pepsi - Recreational Drug Use Recreational Drug Use: No - Living Situation & Occupation Living situation: Reports: Occupation: Employed ED ROS GENERAL - Review of Systems Review Of Systems: See Below Constitutional: Denies: Fever, Chills, Diaphoresis HEENT: Reports: No Symptoms Respiratory: Denies: Shortness of Breath Cardiovascular: Denies: Chest Pain GI/Abdominal: Reports: Abdominal Pain, Diarrhea, Hematochezia, Nausea. Denies: Vomiting Musculoskeletal: Reports: No Symptoms Skin: Reports: No Symptoms Neurological: Reports: No Symptoms ED EXAM, GI/ABD - Physical Exam Exam: See Below General Appearance: Alert, No Apparent Distress Throat/Mouth: Normal Inspection, Normal Oropharynx Head: Atraumatic. No: Facial Swelling Neck: Supple, Full Range of Motion Respiratory/Chest: No Respiratory Distress, Lungs Clear, Normal Breath Sounds GI/Abdominal Exam: Soft, Non-Tender. No: Guarding, Rebound Back Exam: No: CVA Tenderness (L), CVA Tenderness (R) Extremities: Normal Inspection, Normal Range of Motion Neurological: Alert, Oriented, No Motor/Sensory Deficits Skin Exam: Warm, Dry, Normal Color Course - Vital Signs Last Recorded V/S: Last Vital Signs Temp 97.2 F 04/22/18 16:53 Pulse 70 04/22/18 16:53 Resp 16 04/22/18 16:53 BP 115/78 04/22/18 16:53 Pulse Ox 98 04/22/18 16:53 - Orders/Labs/Meds Orders: Active Orders 24 hr Category Date Time Status Peripheral IV Care [RC] . DIRECTED Care 04/22/18 18:09 Active Peripheral IV Insertion Adult [OM.PC] Stat Oth 04/22/18 18:08 Ordered Labs: Laboratory Tests 04/22/18 04/22/18 Range/Units 18:30 18:30 WBC 15.27 H (3.98-10.04) K/mm3 RBC 4.45 (3.98-5.22) M/mm3 Hgb 13.8 (11.2-15.7) gm/L Hct 41.1 (34.1-44.9) % MCV 92.4 (79.4-94.8) fl MCH 31.0 (25.6-32.2) pg MCHC 33.6 (32.2-35.5) g/dl RDW Std Deviation 42.3 (36.4-46.3) fL Plt Count 249 (182-369) K/mm3 MPV 10.0 (9.4-12.3) fl Neut % (Auto) 82.3 H (34.0-71.1) % Lymph % (Auto) 12.0 L (19.3-51.7) % Crosby % (Auto) 5.3 (4.7-12.5) % Eos % (Auto) 0.1 L (0.7-5.8) Baso % (Auto) 0.1 (0.1-1.2) % Neut # (Auto) 12.56 H (1.56-6.13) K/mm3 Lymph # (Auto) 1.83 (1.18-3.74) K/mm3 Crosby # (Auto) 0.81 H (0.24-0.36) K/mm3 Eos # (Auto) 0.02 L (0.04-0.36) K/mm3 Baso # (Auto) 0.02 (0.01-0.08) K/mm3 Sodium 136 (136-145) mEq/L Potassium 3.8 (3.5-5.1) mEq/L Chloride 103 (98-107) mEq/L Carbon Dioxide 24 (21-32) mEq/L Anion Gap 12.8 (5-15) BUN 8 (7-18) mg/dL Creatinine 0.7 (0.55-1.02) mg/dL Est Cr Clr Drug Dosing 116.11 mL/min Estimated GFR (MDRD) > 60 (>60) mL/min BUN/Creatinine Ratio 11.4 L (14-18) Glucose 105 (74-106) mg/dL Calcium 9.0 (8.5-10.1) mg/dL Total Bilirubin 0.2 (0.2-1.0) mg/dL AST 23 (15-37) U/L ALT 18 (14-59) U/L Alkaline Phosphatase 53 (46-116) U/L Total Protein 7.5 (6.4-8.2) g/dl Albumin 3.8 (3.4-5.0) g/dl Globulin 3.7 gm/dL Albumin/Globulin Ratio 1.0 (1-2) Meds: Medications Discontinued Medications Generic Name Dose Route Start Last Admin Trade Name Edgar PRN Reason Stop Dose Admin Sodium Chloride 1,000 mls @ 999 mls/hr 04/22/18 18:15 04/22/18 18:31 Normal Saline IV 999 mls/hr ONETIME ADWOA Administration Sodium Chloride 10 ml 04/22/18 18:08 04/22/18 18:31 Saline Flush FLUSH 10 ml ASDIRECTED PRN Administration Keep Vein Open - Re-Assessments/Exams Free Text/Narrative Re-Assessment/Exam: 04/23/18 15:04 We did give her a liter of NS, labs are OK, not dehydrated, WBC mildly elevated. I did order stool culture, Stool WBC's but patient unable to provide sample during the 2 hours that she was here. Discharge instr. as documented. Departure - Departure Time of Disposition: 19:37 Disposition: Home, Self-Care 01 Condition: Fair Clinical Impression: Colitis presumed to be due to infection - Discharge Information Prescriptions: Sulfamethoxazole/Trimethoprim [Bactrim Ds Tablet] 1 each PO Q12HR #7 tablet Instructions: Colitis Referrals: Karina Chowdary MD [Primary Care Provider] - Forms: ED Department Discharge Additional Instructions: clear liquids until tomorrow afternoon or until diarrhea resolving. Begin probiotic this evening and take that twice daily for 5 to 7 days or until after symptoms are completely back to normal. Bactrim DS antibiotic twice daily for 3 1/2 days starting this evening. Follow up clinic if not back to normal within 2 to 3 days as expected. Return to ED if symptoms worsening in any way. - My Orders Last 24 Hours: My Active Orders 04/22/18 18:08 Peripheral IV Insertion Adult [OM.PC] Stat 04/22/18 18:09 Peripheral IV Care [RC] . DIRECTED - Assessment/Plan Last 24 Hours: My Active Orders 04/22/18 18:08 Peripheral IV Insertion Adult [OM.PC] Stat 04/22/18 18:09 Peripheral IV Care [RC] . DIRECTED
== END 2018-04-22 19:45 | disposition home or self-care (01) ==
LOC: JD.ED 16:28
DX: K52.9 Noninfective gastroenteritis and colitis, unspecified (principal); F41.9 Anxiety disorder, unspecified; Z88.0 Allergy status to penicillin; Z79.899 Other long term (current) drug therapy
CPT/HCPCS: 36415; 80053; 85025; 96360; 99284; J7040; J7050

== ENCOUNTER 2018-11-12 11:05 | Inpatient (IN) | payer OTHER ==
--- NOTE | 2018-11-12 11:37 | PCM.PREANE ---
Preanesthetic Assessment - Anesthesia/Transfusion/Family Hx Anesthesia History: Prior Anesthesia Without Reaction Family History of Anesthesia Reaction: No Transfusion History: No Prior Transfusion(s) - Review of Systems General: No Symptoms Pulmonary: No Symptoms Cardiovascular: Dyspnea on Exertion Gastrointestinal: Abdominal Pain (contractions) Neurological: No Symptoms Other: Reports: None - Physical Assessment NPO Status Date: 11/12/18 NPO Status Time: 09:00 Pulse: 69 O2 Sat by Pulse Oximetry: 100 Respiratory Rate: 16 Blood Pressure: 113/89 Temperature: 36.8 C Height: 1.75 m Weight: 98.3 kg ASA Class: 2 Mental Status: Alert & Oriented x3 Airway Class: Mallampati = 1 Dentition: Reports: Normal Dentition, Tabiona(s) Thyro-Mental Finger Breadths: 3 Mouth Opening Finger Breadths: 3 ROM/Head Extension: Full Lungs: Clear to Auscultation, Normal Respiratory Effort Cardiovascular: Regular Rate, Regular Rhythm, No Murmurs - Allergies Allergies/Adverse Reactions: Allergies Allergy/AdvReac Type Severity Reaction Status Date / Time Penicillins Allergy Hives Verified 04/22/18 16:56 - Anesthesia Plan Pre-Op Medication Ordered: Antacids - Acknowledgements Anesthesia Type Planned: Spinal Pt an Appropriate Candidate for the Planned Anesthesia: Yes Alternatives and Risks of Anesthesia Discussed w Pt/Guardian: Yes Pt/Guardian Understands and Agrees with Anesthesia Plan: Yes PreAnesthesia Questionnaire HEENT History: Reports: None Genitourinary History: Reports: None 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
[2018-11-12] MEDS ORDERED: Nalbuphine 20 MG/ML 1 ML Syringe IVPUSH PRN (11:38)
[2018-11-12] MEDS ORDERED: Sodium Chloride 0.9% 10 ML Syringe FLUSH PRN (11:38)
[2018-11-12] MEDS ORDERED: Oxytocin/Lactated Ringers 10 UNIT/1,000 ML BAG IV SCH (11:45)
[2018-11-12] MEDS ORDERED: Lactated Ringers 1,000 ML IV SCH (11:45)
[2018-11-12] MEDS ORDERED: ceFAZolin 1 GM Vial ONE (11:47)
[2018-11-12] MEDS ORDERED: Phenylephrine 1% 10 MG/ML SDV ONE (11:47)
[2018-11-12] MEDS ORDERED: Bupivacaine 0.5% 30 ML SDV ONE (11:48)
[2018-11-12] MEDS ORDERED: Oxytocin 10 Units/1 ML SDV ONE (11:49)
[2018-11-12] MEDS ORDERED: Ketorolac 30 MG/ML SDV ONE (11:49)
[2018-11-12] MEDS ORDERED: Morphine PF 1 MG/ML Amp ONE (11:50)
[2018-11-12] MEDS ORDERED: ceFAZolin 2 GM in Premix Bag 1 BAG IV ONE (12:00)
[2018-11-12] MEDS ORDERED: Metoclopramide 10 MG/2 ML SDV IVPUSH ONE (12:00)
[2018-11-12] MEDS ORDERED: Citric Acid/Sodium Citrate Solution 30 ML Cup PO ONE (12:00)
[2018-11-12] MEDS ORDERED: Lactated Ringers 1,000 ML ONE ×2 (12:28)
[2018-11-12] MEDS ORDERED: diphenhydrAMINE 50 MG/ML SDV IVPUSH PRN ×2 (13:11→14:55)
--- NOTE | 2018-11-12 13:13 | PCM.POSTAN ---
POST ANESTHESIA ASSESSMENT - MENTAL STATUS Mental Status: Alert, Oriented - VITAL SIGNS Pulse Rate: 67 SaO2: 95 Resp Rate: 12 Blood Pressure: 104/61 Temperature: 36.7 C - RESPIRATORY Respiratory Status: Respiratory Rate WNL, Airway Patent, O2 Saturation Stable, Supplemental Oxygen - CARDIOVASCULAR CV Status: Pulse Rate WNL, Blood Pressure Stable - GASTROINTESTINAL GI Status: No Symptoms - PAIN Pain Score: 0 - POST OP HYDRATION Hydration Status: Adequate & Stable - OBSERVATIONS Free Text/Narrative:: no anesthesia complications noted
--- NOTE | 2018-11-12 13:17 | PCM.OPNOTE ---
- General Post-Op/Procedure Note Date of Surgery/Procedure: 11/12/18 Findings: Viable female, weight 7#5oz, APGARS 8/8/9 at 1234 Pre Op Diagnosis: labor, prior c/s x2 Post-Op Diagnosis: Same Anesthesia Technique: Spinal Primary Surgeon: Ana Ibarra Anesthesia Provider: Antoni Flores [employer]ards Solder Leveler: Karina Chowdary Fluid Replacement, Intraop: 2,600 Output, Urine Amount: 30 EBL in mLs: 800 Complications: None Condition: Good Free Text/Narrative:: The patient was taken to the operating room where epidural anesthesia was dosed to surgical levels without difficulty. The patient was prepped and draped in the usual sterile fashion in the dorsal supine position with a leftward tilt. A Pfannenstiel skin incision was made with the scalpel and carried through to the underlying layer of fascia. The fascia was incised in the midline and extended laterally using Angeles scissors. Yayo clamps were used to elevate the superior aspect of the fascial incision, which was elevated, and the underlying rectus muscles were dissected off bluntly and using Angeles scissors. Attention was then turned to the inferior aspect of the fascial incision, which in similar fashion was grasped with Yayo clamps, elevated, and the underlying rectus muscles were dissected off bluntly and using the angeles. The rectus muscles were dissected in the midline. The peritoneum was entered bluntly; this incision was extended superiorly and inferiorly with good visualization of the bladder. The bladder blade was inserted. The vesicouterine peritoneum was identified and entered sharply using Metzenbaum scissors. This incision was extended laterally and the bladder flap was created digitally. The bladder blade was reinserted. The lower uterine segment was incised in a transverse fashion using the scalpel and with digital traction. Clear fluid was noted. The was subsequently delivered by flexing the head to the incision. Body and shoulders followed without difficulty. The cord was clamped and cut. The infant was subsequently handed to the awaiting technical services analyst whose presence had been requested.. The placenta was delivered spontaneously intact with a three-vessel cord noted. The uterus was exteriorized and cleared of all clots and debris. The uterine incision was repaired in 2 layers using 0 monocryl. Hemostasis was visualized. Hemostasis was visualized bilaterally. The uterus was returned to the abdomen. The uterine incision was reexamined and it was noted to be hemostatic. The pelvis was copiously irrigated. The fascia was closed with 1 PDS suture, and the skin was closed with 3-0 monocryl. Sponge, lap, and instrument counts were correct x2. The patient was stable at the completion of the procedure and was subsequently transferred to the recovery room in stable condition.
[2018-11-12] MEDS ORDERED: Lanolin 100% Cream 7 GM Tube TOP PRN (14:55)
[2018-11-12] MEDS ORDERED: Naloxone 0.4 MG/ML SDV IVPUSH PRN (14:55)
[2018-11-12] MEDS ORDERED: ePHEDrine 50 MG/ML SDV IVPUSH PRN (14:55)
[2018-11-12] MEDS ORDERED: Dextrose 5%-Lactated Ringers 1,000 ML IV SCH (14:55)
[2018-11-12] MEDS: Ketorolac 30 MG/ML SDV IVPUSH SCH (18:46)
[2018-11-13] MEDS: Ketorolac 30 MG/ML SDV IVPUSH SCH ×2 (01:12→06:51)
--- NOTE | 2018-11-13 08:32 | PCM.PNPP ---
- General Info Date of Service: 11/13/18 Functional Status: Reports: Pain Controlled, Tolerating Diet, Ambulating, Urinating - Review of Systems General: Reports: No Symptoms Pulmonary: Reports: No Symptoms Cardiovascular: Reports: No Symptoms Gastrointestinal: Reports: Abdominal Pain (managed with medications ) Genitourinary: Reports: No Symptoms Musculoskeletal: Reports: No Symptoms Neurological: Reports: No Symptoms - Patient Data Vital Signs - Most Recent: Last Vital Signs Temp 36.9 C 11/13/18 04:51 Pulse 70 11/13/18 04:51 Resp 14 11/13/18 07:00 BP 121/82 11/13/18 04:51 Pulse Ox 99 11/13/18 07:00 Weight - Most Recent: 93.497 kg I&O - Last 24 Hours: Intake & Output 11/12/18 11/13/18 11/13/18 22:59 06:59 14:59 Intake Total 200 1600 Output Total 325 1200 Balance -125 400 Lab Results - Last 24 Hours: Laboratory Results - last 24 hr 11/12/18 11/12/18 11/12/18 Range/Units 11:30 11:30 11:30 WBC 11.60 H (3.98-10.04) K/mm3 RBC 3.73 L (3.98-5.22) M/mm3 Hgb 10.6 L (11.2-15.7) gm/L Hct 32.0 L (34.1-44.9) % MCV 85.8 (79.4-94.8) fl MCH 28.4 (25.6-32.2) pg MCHC 33.1 (32.2-35.5) g/dl RDW Std Deviation 41.7 (36.4-46.3) fL Plt Count 229 (182-369) K/mm3 MPV 11.7 (9.4-12.3) fl Neut % (Auto) 70.6 (34.0-71.1) % Lymph % (Auto) 16.9 L (19.3-51.7) % [place] % (Auto) 11.4 (4.7-12.5) % Eos % (Auto) 0.8 (0.7-5.8) Baso % (Auto) 0.3 (0.1-1.2) % Neut # (Auto) 8.19 H (1.56-6.13) K/mm3 Lymph # (Auto) 1.96 (1.18-3.74) K/mm3 [place] # (Auto) 1.32 H (0.24-0.36) K/mm3 Eos # (Auto) 0.09 (0.04-0.36) K/mm3 Baso # (Auto) 0.04 (0.01-0.08) K/mm3 Manual Slide Review Normal smear RPR Non-reactive (NONREACTIVE) Blood Type A POSITIVE Gel Antibody Screen Negative 11/13/18 Range/Units 06:30 WBC 13.80 H (3.98-10.04) K/mm3 RBC 3.33 L (3.98-5.22) M/mm3 Hgb 9.0 L (11.2-15.7) gm/L Hct 28.7 L (34.1-44.9) % MCV 86.2 (79.4-94.8) fl MCH 27.0 (25.6-32.2) pg MCHC 31.4 L (32.2-35.5) g/dl RDW Std Deviation 41.9 (36.4-46.3) fL Plt Count 190 (182-369) K/mm3 MPV 11.2 (9.4-12.3) fl Neut % (Auto) 77.3 H (34.0-71.1) % Lymph % (Auto) 11.4 L (19.3-51.7) % [place] % (Auto) 9.7 (4.7-12.5) % Eos % (Auto) 0.9 (0.7-5.8) Baso % (Auto) 0.2 (0.1-1.2) % Neut # (Auto) 10.66 H (1.56-6.13) K/mm3 Lymph # (Auto) 1.58 (1.18-3.74) K/mm3 [place] # (Auto) 1.34 H (0.24-0.36) K/mm3 Eos # (Auto) 0.12 (0.04-0.36) K/mm3 Baso # (Auto) 0.03 (0.01-0.08) K/mm3 Manual Slide Review RPR (NONREACTIVE) Blood Type Gel Antibody Screen Med Orders - Current: Current Medications Diphenhydramine HCl (Benadryl) 25 mg IVPUSH Q6H PRN PRN Reason: Itching or Nausea Last Admin: 11/13/18 00:29 Dose: 12.5 mg Docusate Sodium (Colace) 100 mg PO Q12H PRN PRN Reason: Constipation Emollient Ointment (Lansinoh Hpa) 0 gm TOP ASDIRECTED PRN PRN Reason: Sore Nipples Last Admin: 11/13/18 04:58 Dose: 1 tube Ephedrine Sulfate (Ephedrine Sulfate) 5 mg IVPUSH SEECOMMENT PRN PRN Reason: Other Ibuprofen (Motrin) 600 mg PO Q6H PRN PRN Reason: mild pain or fever Naloxone HCl (Narcan) 0.1 mg IVPUSH SEECOMMENT PRN PRN Reason: Respiratory Depression Oxycodone/Acetaminophen (Percocet 325-5 Mg) 2 tab PO Q6H PRN PRN Reason: Pain (severe 7-10) Discontinued Medications Bupivacaine HCl (Marcaine 0.5%) Confirm Administered Dose 30 ml .ROUTE .STK-MED ONE Stop: 11/12/18 11:49 Last Admin: 11/12/18 12:30 Dose: 20 ml Cefazolin Sodium (Ancef) Confirm Administered Dose 2 gm .ROUTE .STK-MED ONE Stop: 11/12/18 11:48 Citric Acid/Sodium Citrate (Bicitra Solution) 30 ml PO ONETIME ONE Stop: 11/12/18 12:01 Last Admin: 11/12/18 11:56 Dose: 30 ml Diphenhydramine HCl (Benadryl) 25 mg IVPUSH Q6H PRN PRN Reason: Itching Stop: 11/12/18 16:00 Cefazolin Sodium/Dextrose 2 gm (/ Premix) 50 mls @ 100 mls/hr IV ONETIME ONE Stop: 11/12/18 12:29 Last Admin: 11/12/18 18:12 Dose: Not Given Lactated Ringer's (Ringers, Lactated) 1,000 mls @ 125 mls/hr IV ASDIRECTED [facility] Last Admin: 11/12/18 11:30 Dose: 999 mls/hr Oxytocin/Lactated Ringer's (Pitocin In Lr 10 Units/1,000 Ml) 10 unit in 1,000 mls @ 100 mls/hr IV ASDIRECTED [facility]; Protocol Lactated Ringer's (Ringers, Lactated) Confirm Administered Dose 1,000 mls @ as directed .ROUTE .STK-MED ONE Stop: 11/12/18 12:29 Lactated Ringer's (Ringers, Lactated) Confirm Administered Dose 1,000 mls @ as directed .ROUTE .STK-MED ONE Stop: 11/12/18 12:29 Dextrose/Lactated Ringer's (Dextrose 5%-Lactated Ringers) 1,000 mls @ 125 mls/ hr IV ASDIRECTED [facility] Stop: 11/12/18 22:54 Last Admin: 11/12/18 15:16 Dose: 125 mls/hr Ketorolac Tromethamine (Toradol) Confirm Administered Dose 30 mg .ROUTE .STK- MED ONE Stop: 11/12/18 11:50 Ketorolac Tromethamine (Toradol) 30 mg IVPUSH Q6H [facility] Stop: 11/13/18 07:01 Last Admin: 11/13/18 06:51 Dose: 30 mg Metoclopramide HCl (Reglan) 10 mg IVPUSH ONETIME ONE Stop: 11/12/18 12:01 Last Admin: 11/12/18 11:56 Dose: 10 mg Morphine Sulfate (Duramorph Pf) Confirm Administered Dose 1 mg .ROUTE .STK-MED ONE Stop: 11/12/18 11:51 Nalbuphine HCl (Nubain) 10 mg IVPUSH Q2H PRN PRN Reason: pain Oxytocin (Pitocin) Confirm Administered Dose 10 unit .ROUTE .STK-MED ONE Stop: 11/12/18 11:50 Phenylephrine HCl ([place]-Synephrine) Confirm Administered Dose 10 mg .ROUTE .STK- MED ONE Stop: 11/12/18 11:48 Sodium Chloride (Saline Flush) 10 ml FLUSH ASDIRECTED PRN PRN Reason: Keep Vein Open - Interaction Disposition, : [place] in Room with Family Infant Interaction: Holding Infant Feeding: Breastfed ; Nursed Well Support Person: - Recovery Exam Fundal Tone: Firm Fundal Level: 3 Fingerbreadths Below Umbilicus Fundal Placement: Midline Lochia Amount: Small Lochia Color: Rubra/Red Perineum Description: Intact, Minimal Bruising/Swelling Episiotomy/Laceration: None Bladder Status: Nonpalpable, Indwelling Catheter in Place Urinary Elimination: Indwelling Catheter - Exam General: Alert, Oriented, Cooperative Lungs: Clear to Auscultation, Normal Respiratory Effort Cardiovascular: Regular Rate, Regular Rhythm GI/Abdominal Exam: Soft, Tender (appropriate post op) Extremities: Normal Inspection Skin: Warm, Dry, Intact Wound/Incisions: Healing Well, Dressing Dry and Intact - Problem List & Annotations (1) 38 weeks gestation of SNOMED Code(s): 65814060 Code(s): Z3A.38 - 38 WEEKS GESTATION OF Status: Acute Current Visit: Yes (2) S/P repeat low transverse SNOMED Code(s): 182996009, 94970167, 454281749, 261068067, 847118324 Code(s): Z98.891 - HISTORY OF UTERINE SCAR FROM PREVIOUS SURGERY Status: Acute Current Visit: Yes - Problem List Review Problem List Initiated/Reviewed/Updated: Yes - Assessment Assessment:: 38 y/o G3 now P3003 POD#1 from [facility] at 38 3/7 wks - Plan Plan:: S/p RLTCS * Routine cares * Encourage breast feeding * Discharge home in 1-2 days
[2018-11-13] MEDS: Docusate Sodium 100 MG Cap PO PRN ×2 (08:52→21:43)
[2018-11-13] MEDS: Acetaminophen/oxyCODONE 325-5 MG Tab PO PRN ×2 (11:22→18:23)
[2018-11-13] MEDS: Ibuprofen 600 MG Tab PO PRN (21:43)
[2018-11-14] MEDS: Acetaminophen/oxyCODONE 325-5 MG Tab PO PRN ×2 (00:59→07:46)
[2018-11-14] MEDS: Ibuprofen 600 MG Tab PO PRN (03:55)
--- NOTE | 2018-11-14 05:55 | PCM.PNPP ---
- General Info Date of Service: 11/14/18 Functional Status: Reports: Pain Controlled, Tolerating Diet, Ambulating, Urinating - Review of Systems General: Reports: No Symptoms Pulmonary: Reports: No Symptoms Cardiovascular: Reports: No Symptoms Gastrointestinal: Reports: Abdominal Pain (managed with medications ) Genitourinary: Reports: No Symptoms Musculoskeletal: Reports: No Symptoms Neurological: Reports: No Symptoms - Patient Data Vital Signs - Most Recent: Last Vital Signs Temp 36.6 C 11/14/18 02:35 Pulse 67 11/14/18 02:35 Resp 16 11/14/18 02:35 BP 123/80 11/14/18 02:35 Pulse Ox 96 11/14/18 02:35 Weight - Most Recent: 93.497 kg I&O - Last 24 Hours: Intake & Output 11/13/18 11/13/18 11/14/18 14:59 22:59 06:59 Intake Total 60 Output Total 1300 Balance -1240 Lab Results - Last 24 Hours: Laboratory Results - last 24 hr 11/13/18 Range/Units 06:30 WBC 13.80 H (3.98-10.04) K/mm3 RBC 3.33 L (3.98-5.22) M/mm3 Hgb 9.0 L (11.2-15.7) gm/L Hct 28.7 L (34.1-44.9) % MCV 86.2 (79.4-94.8) fl MCH 27.0 (25.6-32.2) pg MCHC 31.4 L (32.2-35.5) g/dl RDW Std Deviation 41.9 (36.4-46.3) fL Plt Count 190 (182-369) K/mm3 MPV 11.2 (9.4-12.3) fl Neut % (Auto) 77.3 H (34.0-71.1) % Lymph % (Auto) 11.4 L (19.3-51.7) % [place] % (Auto) 9.7 (4.7-12.5) % Eos % (Auto) 0.9 (0.7-5.8) Baso % (Auto) 0.2 (0.1-1.2) % Neut # (Auto) 10.66 H (1.56-6.13) K/mm3 Lymph # (Auto) 1.58 (1.18-3.74) K/mm3 [place] # (Auto) 1.34 H (0.24-0.36) K/mm3 Eos # (Auto) 0.12 (0.04-0.36) K/mm3 Baso # (Auto) 0.03 (0.01-0.08) K/mm3 Med Orders - Current: Current Medications Diphenhydramine HCl (Benadryl) 25 mg IVPUSH Q6H PRN PRN Reason: Itching or Nausea Last Admin: 11/13/18 00:29 Dose: 12.5 mg Docusate Sodium (Colace) 100 mg PO Q12H PRN PRN Reason: Constipation Last Admin: 11/13/18 21:43 Dose: 100 mg Emollient Ointment (Lansinoh Hpa) 0 gm TOP ASDIRECTED PRN PRN Reason: Sore Nipples Last Admin: 11/13/18 04:58 Dose: 1 tube Ephedrine Sulfate (Ephedrine Sulfate) 5 mg IVPUSH SEECOMMENT PRN PRN Reason: Other Ibuprofen (Motrin) 600 mg PO Q6H PRN PRN Reason: mild pain or fever Last Admin: 11/14/18 03:55 Dose: 600 mg Naloxone HCl (Narcan) 0.1 mg IVPUSH SEECOMMENT PRN PRN Reason: Respiratory Depression Oxycodone/Acetaminophen (Percocet 325-5 Mg) 2 tab PO Q6H PRN PRN Reason: Pain (severe 7-10) Last Admin: 11/14/18 00:59 Dose: 2 tab Discontinued Medications Bupivacaine HCl (Marcaine 0.5%) Confirm Administered Dose 30 ml .ROUTE .STK-MED ONE Stop: 11/12/18 11:49 Last Admin: 11/12/18 12:30 Dose: 20 ml Cefazolin Sodium (Ancef) Confirm Administered Dose 2 gm .ROUTE .STK-MED ONE Stop: 11/12/18 11:48 Citric Acid/Sodium Citrate (Bicitra Solution) 30 ml PO ONETIME ONE Stop: 11/12/18 12:01 Last Admin: 11/12/18 11:56 Dose: 30 ml Diphenhydramine HCl (Benadryl) 25 mg IVPUSH Q6H PRN PRN Reason: Itching Stop: 11/12/18 16:00 Cefazolin Sodium/Dextrose 2 gm (/ Premix) 50 mls @ 100 mls/hr IV ONETIME ONE Stop: 11/12/18 12:29 Last Admin: 11/12/18 18:12 Dose: Not Given Lactated Ringer's (Ringers, Lactated) 1,000 mls @ 125 mls/hr IV [facility]ED [facility] Last Admin: 11/12/18 11:30 Dose: 999 mls/hr Oxytocin/Lactated Ringer's (Pitocin In Lr 10 Units/1,000 Ml) 10 unit in 1,000 mls @ 100 mls/hr IV ASDIRECTED [facility]; Protocol Lactated Ringer's (Ringers, Lactated) Confirm Administered Dose 1,000 mls @ as directed .ROUTE .STK-MED ONE Stop: 11/12/18 12:29 Lactated Ringer's (Ringers, Lactated) Confirm Administered Dose 1,000 mls @ as directed .ROUTE .STK-MED ONE Stop: 11/12/18 12:29 Dextrose/Lactated Ringer's (Dextrose 5%-Lactated Ringers) 1,000 mls @ 125 mls/ hr IV ASDIRECTED [facility] Stop: 11/12/18 22:54 Last Admin: 11/12/18 15:16 Dose: 125 mls/hr Ketorolac Tromethamine (Toradol) Confirm Administered Dose 30 mg .ROUTE .STK- MED ONE Stop: 11/12/18 11:50 Ketorolac Tromethamine (Toradol) 30 mg IVPUSH Q6H [facility] Stop: 11/13/18 07:01 Last Admin: 11/13/18 06:51 Dose: 30 mg Metoclopramide HCl (Reglan) 10 mg IVPUSH ONETIME ONE Stop: 11/12/18 12:01 Last Admin: 11/12/18 11:56 Dose: 10 mg Morphine Sulfate (Duramorph Pf) Confirm Administered Dose 1 mg .ROUTE .STK-MED ONE Stop: 11/12/18 11:51 Nalbuphine HCl (Nubain) 10 mg IVPUSH Q2H PRN PRN Reason: pain Oxytocin (Pitocin) Confirm Administered Dose 10 unit .ROUTE .STK-MED ONE Stop: 11/12/18 11:50 Phenylephrine HCl ([place]-Synephrine) Confirm Administered Dose 10 mg .ROUTE .STfarmaciamarket- MED ONE Stop: 11/12/18 11:48 Sodium Chloride (Saline Flush) 10 ml FLUSH ASDIRECTED PRN PRN Reason: Keep Vein Open - Infant Interaction Disposition, : [place] in Room with Family Infant Interaction: Holding Infant Feeding: Breastfed Infant; Nursed Well Support Person: - Recovery Exam Fundal Tone: Firm Fundal Level: 1 Fingerbreadths Below Umbilicus Fundal Placement: Midline Lochia Amount: Scant, Small Lochia Color: Rubra/Red Perineum Description: Intact, Minimal Bruising/Swelling Episiotomy/Laceration: Approximated Bladder Status: Voiding Urinary Elimination: Voided - Exam General: Alert, Oriented, Cooperative Lungs: Clear to Auscultation, Normal Respiratory Effort Cardiovascular: Regular Rate, Regular Rhythm GI/Abdominal Exam: Soft, Tender (appropriate post op) Extremities: Normal Inspection Skin: Warm, Dry, Intact Wound/Incisions: Healing Well, No Drainage - Problem List & Annotations (1) 38 weeks gestation of SNOMED Code(s): 85423044 Code(s): Z3A.38 - 38 WEEKS GESTATION OF Status: Acute Current Visit: Yes (2) S/P repeat low transverse SNOMED Code(s): 157384489, 04356986, 465790166, 034315580, 548298558 Code(s): Z98.891 - HISTORY OF UTERINE SCAR FROM PREVIOUS SURGERY Status: Acute Current Visit: Yes - Problem List Review Problem List Initiated/Reviewed/Updated: Yes - Assessment Assessment:: 38 y/o G3 now P3003 POD#2 from [facility] at 38 3/7 wks - Plan Plan:: S/p [facility]LTCS * Routine cares * Encourage breast feeding * Discharge home today per patient preference
--- NOTE | 2018-11-14 05:57 | PCM.DCSUM1 ---
Discharge Summary - Discharge Data Discharge Date: 11/14/18 Discharge Disposition: Home, Self-Care 01 Condition: Good - Discharge Diagnosis/Problem(s) (1) 38 weeks gestation of SNOMED Code(s): 79800201 ICD Code: Z3A.38 - 38 WEEKS GESTATION OF Status: Acute Current Visit: Yes (2) S/P repeat low transverse SNOMED Code(s): 060346271, 56387050, 716789531, 753003249, 898054619 ICD Code: Z98.891 - HISTORY OF UTERINE SCAR FROM PREVIOUS SURGERY Status: Acute Current Visit: Yes - Patient Summary/Data Complications: None Consults: None Recommended Follow-up Testing/Procedures: Follow up in 1-[address] Ibarra [facility] [facility] Course: 38 y/o woman with history of two prior c-sections presented to clinic at 38 wks with signs of labor. Taken for unscheduled . This was uncomplicated. she did well and was discharged home on POD#2 - Patient Instructions Diet: Regular Diet as Tolerated Activity: No Lifting Over 10 Pounds Activity, Other: Pelvi Rest for 6 weeks Driving: Do Not Drive (While taking narcotics ) Showering/Bathing: May Shower, No Tub Bathing/Swimming Wound/Incision Care: Keep Operative Site/Wound Site Clean and Dry Notify Provider of: Fever, Increased Pain, Swelling and Redness, Drainage, Nausea and/or Vomiting - Discharge Plan *PRESCRIPTION DRUG MONITORING PROGRAM REVIEWED*: Yes *COPY OF PRESCRIPTION DRUG MONITORING REPORT IN PATIENT SHAHIDA: Yes Prescriptions/Med Rec: Acetaminophen/oxyCODONE [Percocet 325-5 MG] 2 tab PO Q6H PRN #25 tablet PRN Reason: Pain (Severe 7-10) Home Medications: Home Meds Cyclobenzaprine [Flexeril] 5 - 10 mg PO TID PRN 11/12/18 [History] Esomeprazole [NexIUM] 40 mg PO DAILY 11/12/18 [History] Venlafaxine [Effexor XR] 150 mg PO DAILY 11/12/18 [History] buPROPion HCl [Wellbutrin Xl] 300 mg PO DAILY 11/12/18 [History] Acetaminophen/oxyCODONE [Percocet 325-5 MG] 2 tab PO Q6H PRN #25 tablet [Rx] Docusate Sodium [Colace] 100 mg PO Q12H PRN cap 11/13/18 [Rx] Ibuprofen [Motrin] 600 mg PO Q6H PRN tablet 11/13/18 [Rx] Referrals: Ana Ibarra MD [Physician] - (2 weeks for incision check) - Discharge Summary/Plan Comment DC Time >30 min.: No - Patient Data Vitals - Most Recent: Last Vital Signs Temp 36.6 C 11/14/18 02:35 Pulse 67 11/14/18 02:35 Resp 16 11/14/18 02:35 BP 123/80 11/14/18 02:35 Pulse Ox 96 11/14/18 02:35 Weight - Most Recent: 93.497 kg I&O - Last 24 hours: Intake & Output 11/13/18 11/13/18 11/14/18 14:59 22:59 06:59 Intake Total 60 Output Total 1300 Balance -1240 Lab Results - Last 24 hrs: Laboratory Results - last 24 hr 11/13/18 Range/Units 06:30 WBC 13.80 H (3.98-10.04) K/mm3 RBC 3.33 L (3.98-5.22) M/mm3 Hgb 9.0 L (11.2-15.7) gm/L Hct 28.7 L (34.1-44.9) % MCV 86.2 (79.4-94.8) fl MCH 27.0 (25.6-32.2) pg MCHC 31.4 L (32.2-35.5) g/dl RDW Std Deviation 41.9 (36.4-46.3) fL Plt Count 190 (182-369) K/mm3 MPV 11.2 (9.4-12.3) fl Neut % (Auto) 77.3 H (34.0-71.1) % Lymph % (Auto) 11.4 L (19.3-51.7) % [place] % (Auto) 9.7 (4.7-12.5) % Eos % (Auto) 0.9 (0.7-5.8) Baso % (Auto) 0.2 (0.1-1.2) % Neut # (Auto) 10.66 H (1.56-6.13) K/mm3 Lymph # (Auto) 1.58 (1.18-3.74) K/mm3 [place] # (Auto) 1.34 H (0.24-0.36) K/mm3 Eos # (Auto) 0.12 (0.04-0.36) K/mm3 Baso # (Auto) 0.03 (0.01-0.08) K/mm3 Med Orders - Current: Current Medications Diphenhydramine HCl (Benadryl) 25 mg IVPUSH Q6H PRN PRN Reason: Itching or Nausea Last Admin: 11/13/18 00:29 Dose: 12.5 mg Docusate Sodium (Colace) 100 mg PO Q12H PRN PRN Reason: Constipation Last Admin: 11/13/18 21:43 Dose: 100 mg Emollient Ointment (Lansinoh Hpa) 0 gm TOP ASDIRECTED PRN PRN Reason: Sore Nipples Last Admin: 11/13/18 04:58 Dose: 1 tube Ephedrine Sulfate (Ephedrine Sulfate) 5 mg IVPUSH SEECOMMENT PRN PRN Reason: Other Ibuprofen (Motrin) 600 mg PO Q6H PRN PRN Reason: mild pain or fever Last Admin: 11/14/18 03:55 Dose: 600 mg Naloxone HCl (Narcan) 0.1 mg IVPUSH SEECOMMENT PRN PRN Reason: Respiratory Depression Oxycodone/Acetaminophen (Percocet 325-5 Mg) 2 tab PO Q6H PRN PRN Reason: Pain (severe 7-10) Last Admin: 11/14/18 00:59 Dose: 2 tab Discontinued Medications Bupivacaine HCl (Marcaine 0.5%) Confirm Administered Dose 30 ml .ROUTE .STK-MED ONE Stop: 11/12/18 11:49 Last Admin: 11/12/18 12:30 Dose: 20 ml Cefazolin Sodium (Ancef) Confirm Administered Dose 2 gm .ROUTE .STK-MED ONE Stop: 11/12/18 11:48 Citric Acid/Sodium Citrate (Bicitra Solution) 30 ml PO ONETIME ONE Stop: 11/12/18 12:01 Last Admin: 11/12/18 11:56 Dose: 30 ml Diphenhydramine HCl (Benadryl) 25 mg IVPUSH Q6H PRN PRN Reason: Itching Stop: 11/12/18 16:00 Cefazolin Sodium/Dextrose 2 gm (/ Premix) 50 mls @ 100 mls/hr IV ONETIME ONE Stop: 11/12/18 12:29 Last Admin: 11/12/18 18:12 Dose: Not Given Lactated Ringer's (Ringers, Lactated) 1,000 mls @ 125 mls/hr IV ASDIRECTED [facility] Last Admin: 11/12/18 11:30 Dose: 999 mls/hr Oxytocin/Lactated Ringer's (Pitocin In Lr 10 Units/1,000 Ml) 10 unit in 1,000 mls @ 100 mls/hr IV ASDIRECTED [facility]; Protocol Lactated Ringer's (Ringers, Lactated) Confirm Administered Dose 1,000 mls @ as directed .ROUTE .STK-MED ONE Stop: 11/12/18 12:29 Lactated Ringer's (Ringers, Lactated) Confirm Administered Dose 1,000 mls @ as directed .ROUTE .STK-MED ONE Stop: 11/12/18 12:29 Dextrose/Lactated Ringer's (Dextrose 5%-Lactated Ringers) 1,000 mls @ 125 mls/ hr IV ASDIRECTED [facility] Stop: 11/12/18 22:54 Last Admin: 11/12/18 15:16 Dose: 125 mls/hr Ketorolac Tromethamine (Toradol) Confirm Administered Dose 30 mg .ROUTE .STK- MED ONE Stop: 11/12/18 11:50 Ketorolac Tromethamine (Toradol) 30 mg IVPUSH Q6H [facility] Stop: 11/13/18 07:01 Last Admin: 11/13/18 06:51 Dose: 30 mg Metoclopramide HCl (Reglan) 10 mg IVPUSH ONETIME ONE Stop: 11/12/18 12:01 Last Admin: 11/12/18 11:56 Dose: 10 mg Morphine Sulfate (Duramorph Pf) Confirm Administered Dose 1 mg .ROUTE .STK-MED ONE Stop: 11/12/18 11:51 Nalbuphine HCl (Nubain) 10 mg IVPUSH Q2H PRN PRN Reason: pain Oxytocin (Pitocin) Confirm Administered Dose 10 unit .ROUTE .STK-MED ONE Stop: 11/12/18 11:50 Phenylephrine HCl ([place]-Synephrine) Confirm Administered Dose 10 mg .ROUTE .Arteris- [employer] ONE Stop: 11/12/18 11:48 Sodium Chloride (Saline Flush) 10 ml FLUSH ASDIRECTED PRN PRN Reason: Keep Vein Open
[2018-11-14 10:28] VITALS: BP 113/62
== END 2018-11-14 11:16 | disposition home or self-care (01) | DRG 788 ==
LOC: JD.OB 11:05
PROVIDERS: ADMIT Obstetrics & Gynecology; ATTEND Obstetrics & Gynecology
PROC: 10D00Z1 Extraction of Products of Conception, Low, Open Approach (ICD-10-PCS; principal; 2018-11-12)
DX: O34.211 Maternal care for low transverse scar from previous cesarean delivery (principal); N85.8 Other specified noninflammatory disorders of uterus; Z3A.38 38 weeks gestation of pregnancy; Z37.0 Single live birth; O99.344 Other mental disorders complicating childbirth; F41.9 Anxiety disorder, unspecified; O99.02 Anemia complicating childbirth; D64.9 Anemia, unspecified; F32.9 Major depressive disorder, single episode, unspecified; Z79.899 Other long term (current) drug therapy
CPT/HCPCS: 36415; 59025; 85025; 86592; 86850; 86900; 86901; A9270-GY; J0690; J1200; J1885; J2274; J2370; J2590; J2765; J3490; J7042; J7120

== ENCOUNTER 2020-07-31 16:47 | Emergency (ER) | payer OTHER ==
[2020-07-31 17:18] VITALS: BP 126/80; PULSE 117
[2020-07-31] MEDS ORDERED: Sodium Chloride 0.9% 1,000 ML IV STA (20:24)
--- NOTE | 2020-07-31 20:35 | EDM.PDOC ---
ED HPI GENERAL MEDICAL PROBLEM - General Chief Complaint: Fever Stated Complaint: FEVER-101.7/CHILLS/BODYACHE Time Seen by Provider: 07/31/20 17:18 Source of Information: Reports: Patient, RN Notes Reviewed History Limitations: Reports: No Limitations - History of Present Illness INITIAL COMMENTS - FREE TEXT/NARRATIVE: Patient is a 39-year-old female presenting to the emergency department with some generalized body aches, intermittent headaches, mild cough, and a fever this afternoon. Patient does have breast cancer is currently undergoing chemotherapy for this. She had her last infusion on Thursday of last week. She was seen in the clinic yesterday to receive an infusion of IV fluids. She was discussing her symptoms with a nurse practitioner at that time and was started on azithromycin for a sinus infection. She also received her Neupogen injection here recently. Today she has had some chills and states she had a temperature at home of 101.7. On triage her temperature was found to be 102.9. She has had no nausea, vomiting, or diarrhea. She is concerned that she could possibly have Covid. Lower Back Pain Score (Numeric/FACES): 5 - Related Data Allergies Allergy/AdvReac Type Severity Reaction Status Date / Time No Known Allergies Allergy Verified 07/31/20 17:19 Home Meds: Home Meds Cyclobenzaprine [Flexeril] 5 - 10 mg PO TID PRN 11/12/18 [History] Venlafaxine [Effexor XR] 187.5 mg PO DAILY 11/12/18 [History] Docusate Sodium [Colace] 100 mg PO Q12H PRN cap 11/13/18 [Rx] Ibuprofen [Motrin] 600 mg PO Q6H PRN tablet 11/13/18 [Rx] Loratadine [Claritin] 20 mg PO DAILY 07/31/20 [History] Naproxen 220 mg PO ASDIRECTED PRN 07/31/20 [History] OLANZapine [Zyprexa] 10 mg PO ASDIRECTED 07/31/20 [History] Pantoprazole Sodium [Protonix] 40 mg PO DAILY 07/31/20 [History] Prochlorperazine Maleate [Compazine] 10 mg PO Q6H PRN 07/31/20 [History] SUMAtriptan [Imitrex] 50 mg PO ASDIRECTED 07/31/20 [History] Sucralfate [Carafate] 1 gram PO QID 07/31/20 [History] estradioL [Climara] 0.1 mg TOP FR 07/31/20 [History] ondansetron HCL [Zofran] 4 mg PO ASDIRECTED PRN 07/31/20 [History] Past Medical History HEENT History: Reports: None Gastrointestinal History: Reports: GERD Genitourinary History: Reports: None [employer] History: Reports: Psychiatric History: Reports: Anxiety Hematologic History: Reports: Anemia Oncologic (Cancer) History: Reports: Breast - Past Surgical History HEENT Surgical History: Reports: LASIK, Tonsillectomy Female Surgical History: Reports: Section, Cystectomy Social & Family History - Family History Family Medical History: Noncontributory - Tobacco Use Tobacco Use Status *Q: Never Tobacco User - Caffeine Use Caffeine Use: Reports: Coffee, Soda Other Caffeine Use: 3 12 oz can per day of Diet Pepsi - Recreational Drug Use Recreational Drug Use: No - Living Situation & Occupation Living situation: Reports: Occupation: Employed ED ROS GENERAL - Review of Systems Review Of Systems: See Below Constitutional: Reports: Fever, Chills, Fatigue HEENT: Reports: Sinus Problem, Throat Pain Respiratory: Reports: Cough. Denies: Shortness of Breath, Wheezing Cardiovascular: Reports: No Symptoms Endocrine: Reports: No Symptoms GI/Abdominal: Reports: No Symptoms. Denies: Abdominal Pain, Nausea, Vomiting : Reports: No Symptoms Musculoskeletal: Reports: No Symptoms Skin: Reports: No Symptoms Neurological: Reports: Headache. Denies: Confusion, Dizziness Psychiatric: Reports: No Symptoms Hematologic/Lymphatic: Reports: No Symptoms Immunologic: Reports: No Symptoms ED EXAM, GENERAL - Physical Exam Exam: See Below General Appearance: Alert, WD/WN, No Apparent Distress Respiratory/Chest: No Respiratory Distress, Lungs Clear, Normal Breath Sounds, No Accessory Muscle Use, Chest Non-Tender Cardiovascular: Normal Peripheral Pulses, Regular Rate, Rhythm, No Edema, No Gallop, No JVD, No Murmur, No Rub GI/Abdominal: Normal Bowel Sounds, Soft, Non-Tender, No Organomegaly, No Distention, No Abnormal Bruit, No Mass Neurological: Alert, Oriented, CN II-XII Intact, Normal Cognition, Normal Gait, Normal Reflexes, No Motor/Sensory Deficits Psychiatric: Normal Affect, Normal Mood Skin Exam: Warm, Dry, Intact, Normal Color, No Rash Course - Vital Signs Last Recorded V/S: Last Vital Signs Temp 99.1 F 07/31/20 18:38 Pulse 117 H 07/31/20 17:15 Resp 20 07/31/20 17:15 BP 126/80 07/31/20 17:15 Pulse Ox 99 07/31/20 17:15 - Orders/Labs/Meds Orders: Active Orders 24 hr Category Date Time Status Chest 1V Frontal [CR] Stat Exams 07/31/20 17:18 Taken CULTURE BLOOD [BC] Stat Lab 07/31/20 17:50 Received CULTURE BLOOD [BC] Stat Lab 07/31/20 18:10 Received Sodium Chloride 0.9% [Normal Saline] 1,000 ml Med 07/31/20 20:24 Active IV NOW Blood Culture x2 Reflex Set [OM.PC] Stat Oth 07/31/20 17:19 Ordered Medication Orders Sodium Chloride (Normal Saline) 1,000 mls @ 999 mls/hr IV NOW STA Stop: 07/31/20 21:24 Last Admin: 07/31/20 20:32 Dose: 999 mls/hr Documented by: MADELEINE Labs: Laboratory Tests 07/31/20 07/31/20 07/31/20 Range/Units 17:29 17:50 17:50 WBC 0.86 L* (3.98-10.04) K/mm3 RBC 3.30 L (3.98-5.22) M/mm3 Hgb 10.1 L (11.2-15.7) gm/dl Hct 31.2 L (34.1-44.9) % MCV 94.5 D (79.4-94.8) fl MCH 30.6 (25.6-32.2) pg MCHC 32.4 (32.2-35.5) g/dl RDW Std Deviation 50.6 H (36.4-46.3) fL Plt Count 141 L (182-369) K/mm3 MPV 10.5 (9.4-12.3) fl Neut % (Auto) 1.0 L (34.0-71.1) % Lymph % (Auto) 60.5 H (19.3-51.7) % Oliver % (Auto) 29.1 H (4.7-12.5) % Eos % (Auto) 4.7 (0.7-5.8) Baso % (Auto) 4.7 H (0.1-1.2) % Neut # (Auto) 0.01 L (1.56-6.13) K/mm3 Lymph # (Auto) 0.52 L (1.18-3.74) K/mm3 Oliver # (Auto) 0.25 (0.24-0.36) K/mm3 Eos # (Auto) 0.04 (0.04-0.36) K/mm3 Baso # (Auto) 0.04 (0.01-0.08) K/mm3 Manual Slide Review Abnormal smear D-Dimer, Quantitative 1.82 H (0.19-0.50) mg/L Sodium (136-145) mEq/L Potassium (3.5-5.1) mEq/L Chloride (98-107) mEq/L Carbon Dioxide (21-32) mEq/L Anion Gap (5-15) BUN (7-18) mg/dL Creatinine (0.55-1.02) mg/dL Est Cr Clr Drug Dosing mL/min Estimated GFR (MDRD) (>60) mL/min BUN/Creatinine Ratio (14-18) Glucose (74-106) mg/dL Lactic Acid (0.4-2.0) mmol/L Calcium (8.5-10.1) mg/dL Total Bilirubin (0.2-1.0) mg/dL AST (15-37) U/L ALT (14-59) U/L Alkaline Phosphatase (46-116) U/L Troponin I (0.00-0.056) ng/mL C-Reactive Protein (<1.0) mg/dL Total Protein (6.4-8.2) g/dl Albumin (3.4-5.0) g/dl Globulin gm/dL Albumin/Globulin Ratio (1-2) Urine Color (Yellow) Urine Appearance (Clear) Urine pH (5.0-8.0) Ur Specific [place] (1.005-1.030) Urine Protein (Negative) Urine Glucose (UA) (Negative) Urine Ketones (Negative) Urine Occult Blood (Negative) Urine Nitrite (Negative) Urine Bilirubin (Negative) Urine Urobilinogen (0.2-1.0) Ur Leukocyte Esterase (Negative) Urine RBC (0-5) /hpf Urine WBC (0-5) /hpf Ur Squamous Epith Cells (0-5) /hpf Urine Bacteria (FEW) /hpf Urine Mucus (FEW) /hpf SARS-CoV-2 RNA (NIKOLE) Negative (NEGATIVE) 07/31/20 07/31/20 07/31/20 Range/Units 17:50 17:50 19:46 WBC (3.98-10.04) K/mm3 RBC (3.98-5.22) M/mm3 Hgb (11.2-15.7) gm/dl Hct (34.1-44.9) % MCV (79.4-94.8) fl MCH (25.6-32.2) pg MCHC (32.2-35.5) g/dl RDW Std Deviation (36.4-46.3) fL Plt Count (182-369) K/mm3 MPV (9.4-12.3) fl Neut % (Auto) (34.0-71.1) % Lymph % (Auto) (19.3-51.7) % Oliver % (Auto) (4.7-12.5) % Eos % (Auto) (0.7-5.8) Baso % (Auto) (0.1-1.2) % Neut # (Auto) (1.56-6.13) K/mm3 Lymph # (Auto) (1.18-3.74) K/mm3 Oliver # (Auto) (0.24-0.36) K/mm3 Eos # (Auto) (0.04-0.36) K/mm3 Baso # (Auto) (0.01-0.08) K/mm3 Manual Slide Review D-Dimer, Quantitative (0.19-0.50) mg/L Sodium 136 (136-145) mEq/L Potassium 3.6 (3.5-5.1) mEq/L Chloride 100 (98-107) mEq/L Carbon Dioxide 24 (21-32) mEq/L Anion Gap 15.6 H (5-15) BUN 13 (7-18) mg/dL Creatinine 0.6 (0.55-1.02) mg/dL Est Cr Clr Drug Dosing 132.86 mL/min Estimated GFR (MDRD) > 60 (>60) mL/min BUN/Creatinine Ratio 21.7 H (14-18) Glucose 95 (74-106) mg/dL Lactic Acid 1.0 (0.4-2.0) mmol/L Calcium 9.3 (8.5-10.1) mg/dL Total Bilirubin 0.4 (0.2-1.0) mg/dL AST 37 (15-37) U/L ALT 75 H (14-59) U/L Alkaline Phosphatase 115 (46-116) U/L Troponin I < 0.017 (0.00-0.056) ng/mL C-Reactive Protein 1.8 H* (<1.0) mg/dL Total Protein 7.4 (6.4-8.2) g/dl Albumin 4.0 (3.4-5.0) g/dl Globulin 3.4 gm/dL Albumin/Globulin Ratio 1.2 (1-2) Urine Color Yellow (Yellow) Urine Appearance Clear (Clear) Urine pH 8.5 H (5.0-8.0) Ur Specific [place] 1.020 (1.005-1.030) Urine Protein Negative (Negative) Urine Glucose (UA) Negative (Negative) Urine Ketones Negative (Negative) Urine Occult Blood Negative (Negative) Urine Nitrite Negative (Negative) Urine Bilirubin Negative (Negative) Urine Urobilinogen 4.0 H (0.2-1.0) Ur Leukocyte Esterase Negative (Negative) Urine RBC 0-5 (0-5) /hpf Urine WBC Not seen (0-5) /hpf Ur Squamous Epith Cells 5-10 H (0-5) /hpf Urine Bacteria Few (FEW) /hpf Urine Mucus Rare (FEW) /hpf SARS-CoV-2 RNA (NIKOLE) (NEGATIVE) Meds: Medications Generic Name Dose Route Start Last Admin Trade Name Freq PRN Reason Stop Dose Admin Sodium Chloride 1,000 mls @ 999 mls/hr 07/31/20 20:24 07/31/20 20:32 Normal Saline IV 07/31/20 21:24 999 mls/hr NOW STA Administration - Re-Assessments/Exams Free Text/Narrative Re-Assessment/Exam: Patient is a 39-year-old female presenting to the emergency department with complaints of fever and chills. She has a breast cancer and is undergoing chemotherapy. She is concerned that she could have Covid. She is had some generalized symptoms including body aches, intermittent headaches, mild cough, and some sinus pressure. She was started on azithromycin yesterday. Her temperature in triage was 102.9, however she states that she had just taken off her winter hat. At the time of my exam, they hat had been off for a while, I rechecked her temperature at 99.1 temporal. We will complete a complete septic work-up including CBC, CMP, CRP, lactic acid, blood cultures x2 withdrawal from her port, chest x-ray, urinalysis, and a Covid test. 07/31/20 20:30 Hematology was significant for WBC low at 0.86, hemoglobin 10.1, D-dimer 1.82, and gap 15.6, ALT 75, CRP 1.8. Troponin was negative. Chest x-ray no acute abnormalities. Urinalysis was negative for infection. Patient is Covid negative. Called and spoke with the oncologist on-call at [facility], Dr. Pittman. She recommended that we give her a liter of IV fluids this evening. She may continue her azithromycin as previously prescribed. She should follow-up with her clinic tomorrow morning. Patient does state that she is scheduled to receive IV fluids in the morning, however she would prefer to get them this evening. She will still go to the clinic tomorrow to see the nurse practitioner and to follow-up. I have ordered a liter of normal saline bolus. We will discharge her home with return precautions. Discharge instructions as d ocumented. Departure - Departure Time of Disposition: 21:08 Disposition: Home, Self-Care 01 Condition: Good Clinical Impression: Chemotherapy induced neutropenia - Discharge Information *PRESCRIPTION DRUG MONITORING PROGRAM REVIEWED*: No *COPY OF PRESCRIPTION DRUG MONITORING REPORT IN PATIENT SHAHIDA: No Referrals: Karina Chowdary MD [Primary Care Provider] - Dominic Craig MD [Ordering Only Provider] - Forms: ED Department Discharge Additional Instructions: You were seen in the emergency department today for evaluation of fever, body aches, cough, and intermittent headaches. Your work-up included extensive blood work, urinalysis, chest x-ray. Results of your work-up showed that your WBCs are low indicating that you are neutropenic, likely related to your chemotherapy. A Covid test was completed and this was found to be negative. Your chest x-ray was normal. Urinalysis did not show signs of infection. We consulted with the oncologist on-call, Dr. Pittman. She recommended a bolus of IV fluids this evening which you did receive. She would like you to contact their clinic tomorrow to follow-up so they may monitor your symptoms. You may keep your appointment at the infusion clinic as well to visit with the nurse practitioner. Blood cultures have been collected. These grow out over a number of days. Should this grow to bacteria suggestive of an infection, you will be notified. If you experience any new or worsening symptoms of concern, please do not hesitate to return to the emergency department. Sepsis Event Note (ED) - Evaluation Sepsis Screening Result: No Definite Risk - Focused Exam Vital Signs: Vital Signs Temp Pulse Resp BP Pulse Ox 07/31/20 18:38 99.1 F 07/31/20 17:15 102.9 F H 117 H 20 126/80 99 - My Orders Last 24 Hours: My Active Orders 07/31/20 17:18 Chest 1V Frontal [CR] Stat 07/31/20 17:19 Blood Culture x2 Reflex Set [OM.PC] Stat 07/31/20 17:50 CULTURE BLOOD [BC] Stat 07/31/20 18:10 CULTURE BLOOD [BC] Stat 07/31/20 20:24 Sodium Chloride 0.9% [Normal Saline] 1,000 ml IV NOW - Assessment/Plan Last 24 Hours: My Active Orders 07/31/20 17:18 Chest 1V Frontal [CR] Stat 07/31/20 17:19 Blood Culture x2 Reflex Set [OM.PC] Stat 07/31/20 17:50 CULTURE BLOOD [BC] Stat 07/31/20 18:10 CULTURE BLOOD [BC] Stat 07/31/20 20:24 Sodium Chloride 0.9% [Normal Saline] 1,000 ml IV NOW
== END 2020-07-31 21:25 | disposition home or self-care (01) ==
LOC: JD.ED 16:47
DX: D70.2 Other drug-induced agranulocytosis (principal); T45.1X5A Adverse effect of antineoplastic and immunosuppressive drugs, initial encounter; K21.9 Gastro-esophageal reflux disease without esophagitis; F41.9 Anxiety disorder, unspecified; Z79.899 Other long term (current) drug therapy; Z20.828 Contact with and (suspected) exposure to other viral communicable diseases
CPT/HCPCS: 36415; 71045; 80053; 81001; 83605; 84484; 85025; 85379; 86140; 87040; 87635; 99284; J1642; J7030; 99283; U0002

== ENCOUNTER 2020-08-01 14:10 | Inpatient (IN) | payer OTHER ==
[2020-08-01] MEDS ORDERED: Magnesium Hydroxide 400 MG/5 ML Susp 30 ML Cup PO PRN (15:05)
[2020-08-01] MEDS ORDERED: Acetaminophen 325 MG Tab PO PRN (15:05)
[2020-08-01] MEDS ORDERED: Ibuprofen 600 MG Tab PO PRN ×2 (15:05→15:55)
--- NOTE | 2020-08-01 15:34 | PCM.HP.2 ---
<Ankush Olsen M - Last Filed: 08/01/20 16:00> H&P History of Present Illness - General Date of Service: 08/01/20 Admit Problem/Dx: Admission Diagnosis/Problem Admission Diagnosis/Problem Neutropenia Source of Information: Patient, Provider History Limitations: Reports: No Limitations - History of Present Illness Initial Comments - Free Text/Narative: Patient is a 39-year-old female who was a direct admit from the oncology clinic, Dr. Craig at [facility]. She presents with a 3-day history of generalized body aches headache, mild cough, dry scratchy throat, right ear pain, and sinus pain. She is currently receiving chemotherapy for breast cancer. Her last infusion was 8 days ago. She presented to the ER last evening and had a full septic work-up and testing for Covid. Her temp last night in the emergency department was found to be 102.9. Blood cultures were collected at that time and we are awaiting culture reports. Chest x-ray was also completed and was unremarkable. She did receive 1 L of normal saline in the ER last night. And per her report she received 1-1/2 L of IV fluids at the clinic today prior to coming over to the hospital. Her appetite has been very poor over the course of the last few days and she is not drink much in the way of fluids as she states she does have terrible heartburn from the chemotherapy and the only thing that she can really tolerate is ice cream. Lab work last night in the ER reveals WBC low at 0.86, hemoglobin 10.1, platelet count of 141, D-dimer 1.82, and C-reactive protein of 1.8. Her chest x-ray showed no acute abnormalities. Urinalysis was negative for infection. Patient was Covid negative. She states that over the last couple of days she has noticed more nasal discharge and it is green/yellow in color. Lab work drawn from [facility] today shows WBC 2.3, hemoglobin 8.9, platelet count 84. There was a differential completed however this is a send out lab and we do not have these results, however the nurse practitioner that was managing the patient's care called to report that there were myelocytes metamyelocytes and bands noted in the differential and that it also showed toxic granulation. I am not going to redraw lab work at this time on the patient, as her hemoglobin has dropped since yesterday, it will increase our infection risk, and we will repeat lab work in the morning it will not change my treatment plan at this time. CMP from [facility] was essentially unremarkable. Onset of Symptoms: Reports: Gradual Symptom Onset Date: 07/29/20 Duration of Symptoms: Reports: Getting Worse Quality: Reports: Ache Severity: Moderate Improves with: Reports: None Associated Symptoms: Reports: cough w sputum, Fever/Chills, Headaches, Loss of Appetite, Malaise, Weakness - Related Data Allergies/Adverse Reactions: Allergies Allergy/AdvReac Type Severity Reaction Status Date / Time No Known Drug Allergies Allergy none Verified 08/01/20 15:09 Home Medications: Home Meds Cyclobenzaprine [Flexeril] 5 - 10 mg PO TID PRN 11/12/18 [History] Venlafaxine [Effexor XR] 187.5 mg PO DAILY 11/12/18 [History] Docusate Sodium [Colace] 100 mg PO Q12H PRN cap 11/13/18 [Rx] Ibuprofen [Motrin] 600 mg PO Q6H PRN tablet 11/13/18 [Rx] Loratadine [Claritin] 20 mg PO DAILY PRN 07/31/20 [History] Naproxen 220 mg PO ASDIRECTED PRN 07/31/20 [History] OLANZapine [Zyprexa] 10 mg PO ASDIRECTED 07/31/20 [History] Pantoprazole Sodium [Protonix] 40 mg PO DAILY 07/31/20 [History] Prochlorperazine Maleate [Compazine] 10 mg PO Q6H PRN 07/31/20 [History] SUMAtriptan [Imitrex] 50 mg PO ASDIRECTED PRN 07/31/20 [History] Sucralfate [Carafate] 1 gram PO QID 07/31/20 [History] estradioL [Climara] 0.1 mg TOP FR 07/31/20 [History] ondansetron HCL [Zofran] 4 mg PO ASDIRECTED PRN 07/31/20 [History] Past Medical History HEENT History: Reports: None Gastrointestinal History: Reports: GERD Genitourinary History: Reports: None SPARE HAND History: Reports: Other OB/BYN History: Breast cancer, L breast biopsy Neurological History: Reports: Migraines Psychiatric History: Reports: Anxiety Other Endocrine/Metabolic History: hashimotoitis Hematologic History: Reports: Anemia Immunologic History: Reports: Immunosuppression Oncologic (Cancer) History: Reports: Breast - Infectious Disease History Infectious Disease History: Reports: Chicken Pox, Shingles - Past Surgical History HEENT Surgical History: Reports: LASIK, Tonsillectomy Female Surgical History: Reports: Section, Cystectomy, Hysterectomy, Oophorectomy Endocrine Surgical History: Reports: Other (See Below) Other Endocrine Surgeries/Procedures: thyroid biopsy Social & Family History - Family History Family Medical History: Noncontributory - Caffeine Use Caffeine Use: Reports: Coffee, Soda Other Caffeine Use: 3 12 oz can per day of Diet Pepsi - Living Situation & Occupation Living situation: Reports: Occupation: Employed H&P Review of Systems - Review of Systems: Review Of Systems: See Below General: Reports: Fever, Chills, Malaise, Weakness, Fatigue, Decreased Appetite HEENT: Reports: Ear Pain (Right ear), Headaches, Sinus Congestion, Sore Throat Pulmonary: Reports: Cough, Sputum (Scant) Cardiovascular: Reports: No Symptoms Gastrointestinal: Reports: Constipation, Decreased Appetite, Nausea Genitourinary: Reports: No Symptoms Musculoskeletal: Reports: Other (She reports bone pain due to the chemotherapy treatment) Skin: Reports: No Symptoms Psychiatric: Reports: No Symptoms Neurological: Reports: No Symptoms Hematologic/Lymphatic: Reports: Other (Neutropenia) Immunologic: Reports: No Symptoms Exam - Exam Exam: See Below - Exam Quality Assessment: Other (Patient does have a Port-A-Cath). No: Supplemental Oxygen General: Alert, Oriented, Cooperative HEENT: Conjunctiva Clear, EACs Clear, Hearing Intact, Mucosa Moist & [place], Pupils Equal, Pupils Reactive Neck: Supple, Trachea Midline Lungs: Clear to Auscultation, Normal Respiratory Effort Cardiovascular: Regular Rate, Regular Rhythm, Normal S1, Normal S2, Systolic Murmur GI/Abdominal Exam: Normal Bowel Sounds, Soft, Non-Tender, No Distention (Female) Exam: Deferred Rectal (Female) Exam: Deferred Back Exam: Normal Inspection, Full Range of Motion Extremities: Normal Inspection, Normal Range of Motion, Non-Tender, No Pedal Edema, Normal Capillary Refill Peripheral Pulses: 2+: Radial (L), Radial (R), Dorsalis Pedis (L), Dorsalis Pedis (R) Skin: Warm, Dry, Intact Neuro Extensive - Mental Status: Alert, Oriented x3, Normal Mood/Affect, Normal Cognition, Memory Intact Psychiatric: Alert, Normal Affect, Normal Mood - Problem List (1) Chemotherapy induced neutropenia SNOMED Code(s): 616502992 ICD Code: D70.1 - AGRANULOCYTOSIS SECONDARY TO CANCER CHEMOTHERAPY; T45.1X5A - ADVERSE EFFECT OF ANTINEOPLASTIC AND IMMUNOSUP DRUGS, INIT Status: Acute Priority: High Current Visit: Yes Problem List Initiated/Reviewed/Updated: Yes Orders Last 24hrs: Active Orders 24 hr Category Date Time Status Patient Status [ADT] Routine ADT 08/01/20 15:05 Active Height and Weight [RC] DAILY Care 08/01/20 15:05 Active Intake and Output [RC] QSHIFT Care 08/01/20 15:07 Active Oxygen Therapy [RC] PRN Care 08/01/20 15:05 Active Up With Assistance [RC] ASDIRECTED Care 08/01/20 15:05 Active VTE/DVT Education [RC] PER UNIT ROUTINE Care 08/01/20 15:05 Active Vital Signs [RC] Q4H Care 08/01/20 15:05 Active Consult to Case Management/Card Hand [CONS] Cons 08/01/20 15:05 Active Routine Regular Diet [DIET] Diet 08/01/20 Dinner Active CBC WITH AUTO DIFF [HEME] AM Lab 08/02/20 05:11 Ordered COMPREHENSIVE METABOLIC PN,CMP [CHEM] AM Lab 08/02/20 05:11 Ordered MAGNESIUM [CHEM] AM Lab 08/02/20 05:11 Ordered Acetaminophen [TylenoL] Med 08/01/20 15:05 Active 650 mg PO Q4H PRN Acetaminophen/oxyCODONE [Percocet 325-5 MG] Med 08/01/20 15:05 Active 1 tab PO Q4H PRN Ibuprofen [Motrin] Med 08/01/20 15:05 Active 600 mg PO Q6H PRN Magnesium Hydroxide [Milk of Magnesia] Med 08/01/20 15:05 Active 30 ml PO Q12H PRN Meropenem Premix [Meropenem] 500 mg Med 08/01/20 16:00 Active Premix Bag 1 bag IV Q6H Sodium Chloride 0.9% [Normal Saline] 1,000 ml Med 08/01/20 15:15 Active IV ASDIRECTED Resuscitation Status Routine Resus Stat 08/01/20 15:05 Ordered Medication Orders Acetaminophen (Tylenol) 650 mg PO Q4H PRN PRN Reason: Pain (Mild 1-3)/fever Meropenem/Sodium Chloride 500 (mg/ Premix) 50 mls @ 100 mls/hr IV Q6H ADWOA Sodium Chloride (Normal Saline) 1,000 mls @ 100 mls/hr IV ASDIRECTED ADWOA Ibuprofen (Motrin) 600 mg PO Q6H PRN PRN Reason: Pain (moderate 4-6) Magnesium Hydroxide (Milk Of Magnesia) 30 ml PO Q12H PRN PRN Reason: Constipation Oxycodone/Acetaminophen (Percocet 325-5 Mg) 1 tab PO Q4H PRN PRN Reason: Pain (moderate 4-6) Assessment/Plan Comment:: 08/01/20 * 39-year-old female with history of breast cancer last chemotherapy treatment 8 days ago. * Developed generalized body aches, headache, sinus pain, sore throat, and a dry cough 3 days ago. * Developed a fever yesterday. * Seen and treated in the ED last evening with a full septic work-up. * Was seen at [facility] today and received 2 L of IV fluids. * Worsening neutropenia Plan: * Place patient in protective isolation * Start Merrem IV every 8 hours. * Follow-up blood cultures drawn in the ED last evening * Will not repeat chest x-ray at this time as it was clear last night in the ER * Repeat labs in the a.m. * Closely monitor CBC * Monitor vital signs for sepsis and fever. * Normal saline at 75 mL's per hour * Dietary consult * on site services specialist consult * CISCO stockings will be used for DVT prophylaxis as patient's platelet count is 84. * Patient is a full code - Mortality Measure Prognosis:: Good <Thai Nina M - Last Filed: 08/01/20 17:51> H&P History of Present Illness - General Admit Problem/Dx: Admission Diagnosis/Problem Admission Diagnosis/Problem Neutropenia Generalized Pain Score (Numeric/FACES): 4 Orders Last 24hrs: Active Orders 24 hr Category Date Time Status Patient Status [ADT] Routine ADT 08/01/20 15:05 Active Antiembolic Devices [RC] BID Care 08/01/20 16:09 Active Communication Order [RC] ASDIRECTED Care 08/01/20 16:15 Active Height and Weight [RC] 04 Care 08/01/20 15:05 Active Intake and Output [RC] 04,06 Care 08/01/20 15:07 Active Oxygen Therapy [RC] PRN Care 08/01/20 15:05 Active Up With Assistance [RC] BID Care 08/01/20 15:05 Active VTE/DVT Education [RC] BID Care 08/01/20 15:05 Active Vital Signs [RC] Q4HR Care 08/01/20 15:05 Active Consult to Case Management/Card Hand [CONS] Cons 08/01/20 15:05 Active Routine Regular Diet [DIET] Diet 08/01/20 Dinner Active CBC WITH AUTO DIFF [HEME] AM Lab 08/02/20 05:11 Ordered COMPREHENSIVE METABOLIC PN,CMP [CHEM] AM Lab 08/02/20 05:11 Ordered MAGNESIUM [CHEM] AM Lab 08/02/20 05:11 Ordered Acetaminophen [TylenoL] Med 08/01/20 15:05 Active 650 mg PO Q4H PRN Acetaminophen/oxyCODONE [Percocet 325-5 MG] Med 08/01/20 15:05 Active 1 tab PO Q4H PRN Docusate Sodium [Colace] Med 08/01/20 15:55 Active 100 mg PO Q12H PRN Ibuprofen [Motrin] Med 08/01/20 15:55 Active 600 mg PO Q6H PRN Loratadine [Claritin] Med 08/01/20 15:55 Active 20 mg PO DAILY PRN Magnesium Hydroxide [Milk of Magnesia] Med 08/01/20 15:05 Active 30 ml PO Q12H PRN Meropenem Premix [Meropenem] 500 mg Med 08/01/20 16:00 Active Premix Bag 1 bag IV Q6H Naproxen [Naprosyn] Med 08/01/20 15:55 Active 375 mg PO ASDIRECTED PRN OLANZapine [ZyPREXA] Med 08/01/20 16:00 Pending 10 mg PO DAILY Pantoprazole [ProTONIX] Med 08/02/20 07:00 Active 40 mg PO DAILY@0700 Patient's Own Medication [Ptom] Med 08/03/20 09:00 Active 0 each TOP Fr@0900 Prochlorperazine [Compazine] Med 08/01/20 15:55 Active 10 mg PO Q6H PRN SUMAtriptan [Imitrex] Med 08/01/20 15:55 Active 50 mg PO ASDIRECTED PRN Sodium Chloride 0.9% [Normal Saline] 1,000 ml Med 08/01/20 15:15 Active IV ASDIRECTED Sucralfate [Carafate] Med 08/01/20 17:00 Active 1 gm PO QIDACANDBED Venlafaxine [Effexor XR] Med 08/01/20 16:00 Active 150 mg PO DAILY Venlafaxine [Effexor XR] Med 08/01/20 16:00 Active 37.5 mg PO DAILY ondansetron HCL Med 08/01/20 15:55 Pending 4 mg PO ASDIRECTED PRN CISCO Hose [Antiembolic Hose] [OM.PC] Routine Oth 08/01/20 16:09 Ordered Resuscitation Status Routine Resus Stat 08/01/20 15:05 Ordered Medication Orders Acetaminophen (Tylenol) 650 mg PO Q4H PRN PRN Reason: Pain (Mild 1-3)/fever Docusate Sodium (Colace) 100 mg PO Q12H PRN PRN Reason: Constipation Meropenem/Sodium Chloride 500 (mg/ Premix) 50 mls @ 100 mls/hr IV Q6H [facility] Last Admin: 08/01/20 15:45 Dose: 100 mls/hr Documented by: YOLETTE Sodium Chloride (Normal Saline) 1,000 mls @ 100 mls/hr IV ASDIRECTED [facility] Last Admin: 08/01/20 15:41 Dose: 100 mls/hr Documented by: YOLETTE Ibuprofen (Motrin) 600 mg PO Q6H PRN PRN Reason: mild pain or fever Loratadine (Claritin) 20 mg PO DAILY PRN PRN Reason: Other; SEE INSTRUCTIONS Magnesium Hydroxide (Milk Of Magnesia) 30 ml PO Q12H PRN PRN Reason: Constipation Last Admin: 08/01/20 15:45 Dose: 30 ml Documented by: YOLETTE Naproxen (Naprosyn) 375 mg PO ASDIRECTED PRN PRN Reason: Headache Non-Formulary Medication (Ondansetron Hcl) 4 mg PO ASDIRECTED PRN PRN Reason: Nausea Olanzapine (Zyprexa) 10 mg PO DAILY [facility] Oxycodone/Acetaminophen (Percocet 325-5 Mg) 1 tab PO Q4H PRN PRN Reason: Pain (moderate 4-6) Pantoprazole Sodium (Protonix) 40 mg PO DAILY@0700 [facility] Estradiol 0.1 Mg (Weekly Patch) 0 each TOP Fr@0900 [facility] Prochlorperazine Maleate (Compazine) 10 mg PO Q6H PRN PRN Reason: Nausea Sucralfate (Carafate) 1 gm PO QIDACANDBED [facility] Last Admin: 08/01/20 17:18 Dose: 1 gm Documented by: YOLETTE Sumatriptan Succinate (Imitrex) 50 mg PO ASDIRECTED PRN PRN Reason: Headache Venlafaxine HCl (Effexor Xr) 37.5 mg PO DAILY [facility] Last Admin: 08/01/20 17:18 Dose: 37.5 mg Documented by: YOLETTE Venlafaxine HCl (Effexor Xr) 150 mg PO DAILY [facility] Last Admin: 08/01/20 17:18 Dose: 150 mg Documented by: YOLETTE Assessment/Plan Comment:: I have seen and examined the patient independent of nurse practitioner Ankush Olsen and I have discussed the case with her. I have reviewed and agree with the assessment and plan as outlined for this patient by her. Please see orders.
[2020-08-01] MEDS: Sodium Chloride 0.9% 1,000 ML IV SCH (15:41)
[2020-08-01] MEDS: Meropenem Premix 500 MG in Premix Bag 1 BAG IV SCH ×2 (15:45→22:03)
[2020-08-01] MEDS ORDERED: Prochlorperazine 5 MG Tab PO PRN (15:55)
[2020-08-01] MEDS ORDERED: Loratadine 10 MG Tab PO PRN (15:55)
[2020-08-01] MEDS ORDERED: SUMAtriptan 50 MG Tab PO PRN (15:55)
[2020-08-01] MEDS ORDERED: Docusate Sodium 100 MG Cap PO PRN (15:55)
[2020-08-01] MEDS ORDERED: OLANZapine 5 MG Tab PO SCH (16:00)
[2020-08-01] MEDS ORDERED: Pantoprazole 40 MG Tab.CR PO ONE (17:00)
[2020-08-01] MEDS: Sucralfate 1 GM Tab PO SCH ×2 (17:18→22:03)
[2020-08-01] MEDS: Venlafaxine 37.5 MG Cap.ER PO SCH (17:18)
[2020-08-01] MEDS: Venlafaxine 75 MG Cap.ER PO SCH (17:18)
[2020-08-01] MEDS: Acetaminophen/oxyCODONE 325-5 MG Tab PO PRN (19:17)
[2020-08-02] MEDS: Sodium Chloride 0.9% 1,000 ML IV SCH (01:46)
[2020-08-02] MEDS: Meropenem Premix 500 MG in Premix Bag 1 BAG IV SCH ×2 (03:51→10:54)
[2020-08-02] MEDS: Sucralfate 1 GM Tab PO SCH ×2 (06:28→10:53)
[2020-08-02] MEDS ORDERED: Pantoprazole 40 MG Tab.CR PO SCH (07:00)
[2020-08-02] MEDS ORDERED: Magnesium Sulfate/Water 2 GM/50 ML BAG IV ONE (08:00)
[2020-08-02] MEDS ORDERED: Magnesium Sulfate/Water 2 GM/50 ML BAG IV SCH (08:00)
[2020-08-02] MEDS: Venlafaxine 75 MG Cap.ER PO SCH (08:46)
[2020-08-02] MEDS: Acetaminophen/oxyCODONE 325-5 MG Tab PO PRN (08:46)
[2020-08-02] MEDS: Venlafaxine 37.5 MG Cap.ER PO SCH (08:46)
[2020-08-02] MEDS ORDERED: Ondansetron 4 MG Tab.DIS PO PRN (09:00)
[2020-08-02] MEDS ORDERED: Sodium Chloride 0.9% 1,000 ML IV SCH (10:45)
[2020-08-02 12:14] VITALS: BP 101/63; PULSE 83
--- NOTE | 2020-08-02 14:36 | PCM.DCSUM1 ---
<Ankush Olsen M - Last Filed: 08/02/20 14:36> Discharge Summary - Hospital Course HPI Initial Comments: Patient is a 39-year-old female who was a direct admit from the oncology clinic, Dr. Craig at [place]. She presents with a 3-day history of generalized body aches headache, mild cough, dry scratchy throat, right ear pain, and sinus pain. She is currently receiving chemotherapy for breast cancer. Her last infusion was 8 days ago. She presented to the ER last evening and had a full septic work-up and testing for Covid. Her temp last night in the emergency department was found to be 102.9. Blood cultures were collected at that time and we are awaiting culture reports. Chest x-ray was also completed and was unremarkable. She did receive 1 L of normal saline in the ER last night. And per her report she received 1-1/2 L of IV fluids at the clinic today prior to coming over to the hospital. Her appetite has been very poor over the course of the last few days and she is not drink much in the way of fluids as she states she does have terrible heartburn from the chemotherapy and the only thing that she can really tolerate is ice cream. Lab work last night in the ER reveals WBC low at 0.86, hemoglobin 10.1, platelet count of 141, D-dimer 1.82, and C-reactive protein of 1.8. Her chest x-ray showed no acute abnormalities. Urinalysis was negative for infection. Patient was Covid negative. She states that over the last couple of days she has noticed more nasal discharge and it is green/yellow in color. Lab work drawn from [facility] today shows WBC 2.3, hemoglobin 8.9, platelet count 84. There was a differential completed however this is a send out lab and we do not have these results, however the nurse practitioner that was managing the patient's care called to report that there were myelocytes metamyelocytes and bands noted in the differential and that it also showed toxic granulation. I am not going to redraw lab work at this time on the patient, as her hemoglobin has dropped since yesterday, it will increase our infection risk, and we will repeat lab work in the morning it will not change my treatment plan at this time. CMP from [facility] was essentially unremarkable. Diagnosis: Stroke: No - Discharge Data Discharge Date: 08/02/20 (Admit date: 08/01/20) Discharge Disposition: Home, Self-Care 01 Condition: Good - Referral to Home Health Primary Care Physician: Karina Chowdary MD - Discharge Diagnosis/Problem(s) (1) Chemotherapy induced neutropenia SNOMED Code(s): 192053936 ICD Code: D70.1 - AGRANULOCYTOSIS SECONDARY TO CANCER CHEMOTHERAPY; T45.1X5A - ADVERSE EFFECT OF ANTINEOPLASTIC AND IMMUNOSUP DRUGS, INIT Status: Acute Priority: High - Patient Summary/Data Consults: Consultations 08/01/20 15:05 Consult to Case Management/Dean Of Graduate Studies [CONS] Routine Hospital Course: 39-year-old female admitted to [facility] floor as an observation patient with n eutropenic fever. Patient had previously been seen in the ED the night prior and had a full septic work-up completed. While on the floor, the patient received meropenem IV every 8 hours and normal saline IV at 100 mL's per hour. Blood cultures drawn in the emergency department showed no growth. The patient remained afebrile. Vital signs remained unremarkable. Lab work this a.m. shows:WBC 16.42, Hemoglobin 8.6, Neutrophil percentage 41, Band neutrophil percentage 0, absolute neutrophil count 6732.2, platelet count 76, Potassium 4.0, BUN 6, Creatinine 0.7, GFR greater than 60, Magnesium 1.7, Blood cultures show no growth, UA was negative for infection. I spoke with Dr. Craig this afternoon and updated him on the patient and her most previous lab work. He states that if her absolute neutrophil count is greater than 1000 that she can be discharged to home. Patient is agreeable to this as well. - Patient Instructions Diet: Regular Diet as Tolerated Activity: As Tolerated Notify Provider of: Fever Other/Special Instructions: Discharge to home. Follow-up with [place] oncology clinic as previously scheduled. Return to the ER should you develop a fever, cough, shortness of breath. - Discharge Plan *PRESCRIPTION DRUG MONITORING PROGRAM REVIEWED*: No *COPY OF PRESCRIPTION DRUG MONITORING REPORT IN PATIENT SHAHIDA: No Home Medications: Home Meds Cyclobenzaprine [Flexeril] 5 - 10 mg PO TID PRN 11/12/18 [History] Venlafaxine [Effexor XR] 187.5 mg PO DAILY 11/12/18 [History] Docusate Sodium [Colace] 100 mg PO Q12H PRN cap 11/13/18 [Rx] Ibuprofen [Motrin] 600 mg PO Q6H PRN tablet 11/13/18 [Rx] Loratadine [Claritin] 20 mg PO DAILY PRN 07/31/20 [History] Naproxen 220 mg PO ASDIRECTED PRN 07/31/20 [History] OLANZapine [Zyprexa] 10 mg PO ASDIRECTED 07/31/20 [History] Pantoprazole Sodium [Protonix] 40 mg PO DAILY 07/31/20 [History] Prochlorperazine Maleate [Compazine] 10 mg PO Q6H PRN 07/31/20 [History] SUMAtriptan [Imitrex] 50 mg PO ASDIRECTED PRN 07/31/20 [History] Sucralfate [Carafate] 1 gram PO QID 07/31/20 [History] estradioL [Climara] 0.1 mg TOP FR 07/31/20 [History] ondansetron HCL [Zofran] 4 mg PO ASDIRECTED PRN 07/31/20 [History] Oxygen Therapy Mode: Room Air - Discharge Summary/Plan Comment DC Time >30 min.: No - General Info Date of Service: 08/02/20 Admission Dx/Problem (Free Text: Admission Diagnosis/Problem Admission Diagnosis/Problem Neutropenia Subjective Update: Feels much better than yesterday. Still has a headache, but she states that this has been common since starting chemotherapy. Functional Status: Reports: Pain Controlled, Tolerating Diet, Ambulating, Urinating - Review of Systems General: Reports: No Symptoms. Denies: Fever, Weakness HEENT: Reports: No Symptoms, Headaches (Chronic since starting chemo) Pulmonary: Reports: No Symptoms Cardiovascular: Reports: No Symptoms Gastrointestinal: Reports: No Symptoms Genitourinary: Reports: No Symptoms Musculoskeletal: Reports: No Symptoms Skin: Reports: No Symptoms Neurological: Reports: No Symptoms Psychiatric: Reports: No Symptoms - Patient Data Vitals - Most Recent: Last Vital Signs Temp 98.6 F 08/02/20 11:03 Pulse 83 08/02/20 11:03 Resp 16 08/02/20 11:03 BP 101/63 08/02/20 11:03 Pulse Ox 95 08/02/20 11:03 Weight - Most Recent: 84.232 kg I&O - Last 24 hours: Intake & Output 08/01/20 08/02/20 08/02/20 22:59 06:59 14:59 Intake Total 100 2912 Output Total 2200 Balance 100 712 Lab Results - Last 24 hrs: Laboratory Results - last 24 hr 08/02/20 08/02/20 08/02/20 Range/Units 05:48 05:48 11:16 WBC 16.42 H (3.98-10.04) K/mm3 RBC 2.82 L (3.98-5.22) M/mm3 Hgb 8.6 L D (11.2-15.7) gm/dl Hct 27.3 L (34.1-44.9) % MCV 96.8 H (79.4-94.8) fl MCH 30.5 (25.6-32.2) pg MCHC 31.5 L (32.2-35.5) g/dl RDW Std Deviation 51.7 H (36.4-46.3) fL Plt Count 76 L (182-369) K/mm3 MPV 10.8 (9.4-12.3) fl Neut % (Auto) Cancelled Lymph % (Auto) Cancelled Bradley % (Auto) Cancelled Eos % (Auto) Cancelled Baso % (Auto) Cancelled Neut # (Auto) Cancelled Lymph # (Auto) Cancelled Bradley # (Auto) Cancelled Eos # (Auto) Cancelled Baso # (Auto) Cancelled Neutrophils % (Manual) 41 (40-60) % Band Neutrophils % 0 (0-10) % Lymphocytes % (Manual) 36 (20-40) % Atypical Lymphs % 0 % Monocytes % (Manual) 22 H (2-10) % Eosinophils % (Manual) 1 (0.7-5.8) % Basophils % (Manual) 0 L (0.1-1.2) Manual Slide Review Cancelled Platelet Estimate Decreased Anisocytosis 1+ slight RBC Morph Comment Abnormal Sodium 143 (136-145) mEq/L Potassium 4.0 (3.5-5.1) mEq/L Chloride 110 H (98-107) mEq/L Carbon Dioxide 23 (21-32) mEq/L Anion Gap 14.0 (5-15) BUN 6 L (7-18) mg/dL Creatinine 0.7 (0.55-1.02) mg/dL Est Cr Clr Drug Dosing 113.88 mL/min Estimated GFR (MDRD) > 60 (>60) mL/min BUN/Creatinine Ratio 8.6 L (14-18) Glucose 82 (74-106) mg/dL Calcium 8.3 L (8.5-10.1) mg/dL Magnesium 1.7 L (1.8-2.4) mg/dl Total Bilirubin 0.2 (0.2-1.0) mg/dL AST 80 H (15-37) U/L ALT 94 H (14-59) U/L Alkaline Phosphatase 100 (46-116) U/L Total Protein 5.5 L (6.4-8.2) g/dl Albumin 2.9 L (3.4-5.0) g/dl Globulin 2.6 gm/dL Albumin/Globulin Ratio 1.1 (1-2) Urine Color Light yellow (Yellow) Urine Appearance Clear (Clear) Urine pH 6.5 (5.0-8.0) Ur Specific Barry 1.010 (1.005-1.030) Urine Protein Negative (Negative) Urine Glucose (UA) Negative (Negative) Urine Ketones Negative (Negative) Urine Occult Blood Negative (Negative) Urine Nitrite Negative (Negative) Urine Bilirubin Negative (Negative) Urine Urobilinogen 0.2 (0.2-1.0) Ur Leukocyte Esterase Negative (Negative) Med Orders - Current: Current Medications Acetaminophen (Tylenol) 650 mg PO Q4H PRN PRN Reason: Pain (Mild 1-3)/fever Docusate Sodium (Colace) 100 mg PO Q12H PRN PRN Reason: Constipation Meropenem/Sodium Chloride 500 (mg/ Premix) 50 mls @ 100 mls/hr IV Q6H [facility] Last Admin: 08/02/20 10:54 Dose: 100 mls/hr Documented by: Sodium Chloride (Normal Saline) 1,000 mls @ 75 mls/hr IV ASDIRECTED [facility] Last Admin: 08/02/20 10:54 Dose: 75 mls/hr Documented by: Loratadine (Claritin) 20 mg PO DAILY PRN PRN Reason: Other; SEE INSTRUCTIONS Magnesium Hydroxide (Milk Of Magnesia) 30 ml PO Q12H PRN PRN Reason: Constipation Last Admin: 08/01/20 15:45 Dose: 30 ml Documented by: Naproxen (Naprosyn) 375 mg PO TID PRN PRN Reason: mild pain or fever, headache Ondansetron HCl (Zofran Odt) 8 mg PO TID PRN PRN Reason: Nausea Oxycodone/Acetaminophen (Percocet 325-5 Mg) 1 tab PO Q4H PRN PRN Reason: Pain (moderate 4-6) Last Admin: 08/02/20 08:46 Dose: 1 tab Documented by: Pantoprazole Sodium (Protonix) 40 mg PO DAILY@0700 [facility] Last Admin: 08/02/20 06:29 Dose: 40 mg Documented by: Estradiol 0.1 Mg (Weekly Patch) 0 each TOP Fr@0900 [facility] Prochlorperazine Maleate (Compazine) 10 mg PO Q6H PRN PRN Reason: Nausea Sucralfate (Carafate) 1 gm PO QIDACANDBED [facility] Last Admin: 08/02/20 10:53 Dose: 1 gm Documented by: Sumatriptan Succinate (Imitrex) 50 mg PO ASDIRECTED PRN PRN Reason: Headache Venlafaxine HCl (Effexor Xr) 37.5 mg PO DAILY [facility] Last Admin: 08/02/20 08:46 Dose: 37.5 mg Documented by: Venlafaxine HCl (Effexor Xr) 150 mg PO DAILY [facility] Last Admin: 08/02/20 08:46 Dose: 150 mg Documented by: Discontinued Medications Sodium Chloride (Normal Saline) 1,000 mls @ 100 mls/hr IV ASDIRECTED [facility] Last Admin: 08/02/20 01:46 Dose: 100 mls/hr Documented by: Magnesium Sulfate (Magnesium Sulfate In Water Premix) 2 gm in 50 mls @ 25 mls/hr IV ONETIME ONE Stop: 08/02/20 09:59 Last Admin: 08/02/20 08:44 Dose: 25 mls/hr Documented by: Magnesium Sulfate (Magnesium Sulfate In Water Premix) 2 gm in 50 mls @ 25 mls/hr IV Q1H [facility] Stop: 08/02/20 08:59 Last Admin: 08/02/20 12:20 Dose: Not Given Documented by: Ibuprofen (Motrin) 600 mg PO Q6H PRN PRN Reason: Pain (moderate 4-6) Last Admin: 08/01/20 16:00 Dose: 600 mg Documented by: Ibuprofen (Motrin) 600 mg PO Q6H PRN PRN Reason: mild pain or fever Last Admin: 08/02/20 06:32 Dose: 600 mg Documented by: Naproxen (Naprosyn) 375 mg PO ASDIRECTED PRN PRN Reason: Headache Olanzapine (Zyprexa) 10 mg PO DAILY [facility] Last Admin: 08/02/20 12:20 Dose: Not Given Documented by: Pantoprazole Sodium (Protonix) 40 mg PO ONETIME ONE Stop: 08/01/20 17:01 Last Admin: 08/01/20 17:18 Dose: 40 mg Documented by: - Exam Quality Assessment: Reports: Central Line/PICC (Port-A-Cath to right chest), DVT Prophylaxis (Hussain stockings). Denies: Supplemental Oxygen General: Reports: Alert, Oriented, Cooperative, No Acute Distress HEENT: Reports: Pupils Equal, Pupils Reactive, Mucous Membr. Moist/[place] Neck: Reports: Supple, Trachea Midline. Denies: Lymphadenopathy Lungs: Reports: Clear to Auscultation, Normal Respiratory Effort Cardiovascular: Reports: Regular Rate, Regular Rhythm, Murmurs (Systolic ) GI/Abdominal Exam: Normal Bowel Sounds, Soft, Non-Tender, No Distention (Female) Exam: Deferred Rectal (Female) Exam: Deferred Back Exam: Reports: Normal Inspection, Full Range of Motion. Denies: CVA Tenderness (L), CVA Tenderness (R) Extremities: Normal Inspection, Normal Range of Motion, Non-Tender, No Pedal Edema, Normal Capillary Refill Skin: Reports: Warm, Dry, Intact Neurological: Reports: No New Focal Deficit Psy/Mental Status: Reports: Alert, Normal Affect, Normal Mood <Thai Nina - Last Filed: 08/03/20 07:19> Discharge Summary - Referral to Home Health Primary Care Physician: Karina Chowdary MD - Patient Summary/Data Consults: Consultations 08/01/20 15:05 Consult to Case Management/Dean Of Graduate Studies [CONS] Routine Hospital Course: I have seen and examined the patient independent of nurse practitioner Ankush Olsen and I have discussed the case with her. I have reviewed and agree with the assessment and plan as outlined for this patient by her. Please see orders. - Patient Data Vitals - Most Recent: Last Vital Signs Temp 37.0 C 08/02/20 11:03 Pulse 83 08/02/20 11:03 Resp 16 08/02/20 11:03 BP 101/63 08/02/20 11:03 Pulse Ox 95 08/02/20 11:03 I&O - Last 24 hours: Intake & Output 08/02/20 08/03/20 08/03/20 22:59 06:59 14:59 Intake Total 1000 Balance 1000 Lab Results - Last 24 hrs: Laboratory Results - last 24 hr 08/02/20 08/02/20 Range/Units 05:48 11:16 Neut % (Auto) Cancelled Lymph % (Auto) Cancelled Bradley % (Auto) Cancelled Eos % (Auto) Cancelled Baso % (Auto) Cancelled Neut # (Auto) Cancelled Lymph # (Auto) Cancelled Bradley # (Auto) Cancelled Eos # (Auto) Cancelled Baso # (Auto) Cancelled Neutrophils % (Manual) 41 (40-60) % Band Neutrophils % 0 (0-10) % Lymphocytes % (Manual) 36 (20-40) % Atypical Lymphs % 0 % Monocytes % (Manual) 22 H (2-10) % Eosinophils % (Manual) 1 (0.7-5.8) % Basophils % (Manual) 0 L (0.1-1.2) Manual Slide Review Cancelled Platelet Estimate Decreased Anisocytosis 1+ slight RBC Morph Comment Abnormal Urine Color Light yellow (Yellow) Urine Appearance Clear (Clear) Urine pH 6.5 (5.0-8.0) Ur Specific Barry 1.010 (1.005-1.030) Urine Protein Negative (Negative) Urine Glucose (UA) Negative (Negative) Urine Ketones Negative (Negative) Urine Occult Blood Negative (Negative) Urine Nitrite Negative (Negative) Urine Bilirubin Negative (Negative) Urine Urobilinogen 0.2 (0.2-1.0) Ur Leukocyte Esterase Negative (Negative) Med Orders - Current: Current Medications Discontinued Medications Acetaminophen (Tylenol) 650 mg PO Q4H PRN PRN Reason: Pain (Mild 1-3)/fever Docusate Sodium (Colace) 100 mg PO Q12H PRN PRN Reason: Constipation Heparin Sodium (Porcine) (Heparin Lock Flush 100 Units/Ml) 500 units FLUSH ASDIRECTED [facility] Last Admin: 08/02/20 15:54 Dose: 500 units Documented by: Meropenem/Sodium Chloride 500 (mg/ Premix) 50 mls @ 100 mls/hr IV Q6H [facility] Last Admin: 08/02/20 10:54 Dose: 100 mls/hr Documented by: Sodium Chloride (Normal Saline) 1,000 mls @ 100 mls/hr IV ASDIRECTED [facility] Last Admin: 08/02/20 01:46 Dose: 100 mls/hr Documented by: Magnesium Sulfate (Magnesium Sulfate In Water Premix) 2 gm in 50 mls @ 25 mls/hr IV ONETIME ONE Stop: 08/02/20 09:59 Last Admin: 08/02/20 08:44 Dose: 25 mls/hr Documented by: Magnesium Sulfate (Magnesium Sulfate In Water Premix) 2 gm in 50 mls @ 25 mls/hr IV Q1H [facility] Stop: 08/02/20 08:59 Last Admin: 08/02/20 12:20 Dose: Not Given Documented by: Sodium Chloride (Normal Saline) 1,000 mls @ 75 mls/hr IV ASDIRECTED [facility] Last Admin: 08/02/20 10:54 Dose: 75 mls/hr Documented by: Ibuprofen (Motrin) 600 mg PO Q6H PRN PRN Reason: Pain (moderate 4-6) Last Admin: 08/01/20 16:00 Dose: 600 mg Documented by: Ibuprofen (Motrin) 600 mg PO Q6H PRN PRN Reason: mild pain or fever Last Admin: 08/02/20 06:32 Dose: 600 mg Documented by: Loratadine (Claritin) 20 mg PO DAILY PRN PRN Reason: Other; SEE INSTRUCTIONS Magnesium Hydroxide (Milk Of Magnesia) 30 ml PO Q12H PRN PRN Reason: Constipation Last Admin: 08/01/20 15:45 Dose: 30 ml Documented by: Naproxen (Naprosyn) 375 mg PO ASDIRECTED PRN PRN Reason: Headache Naproxen (Naprosyn) 375 mg PO TID PRN PRN Reason: mild pain or fever, headache Olanzapine (Zyprexa) 10 mg PO DAILY [facility] Last Admin: 08/02/20 12:20 Dose: Not Given Documented by: Ondansetron HCl (Zofran Odt) 8 mg PO TID PRN PRN Reason: Nausea Oxycodone/Acetaminophen (Percocet 325-5 Mg) 1 tab PO Q4H PRN PRN Reason: Pain (moderate 4-6) Last Admin: 08/02/20 08:46 Dose: 1 tab Documented by: Pantoprazole Sodium (Protonix) 40 mg PO DAILY@0700 [facility] Last Admin: 08/02/20 06:29 Dose: 40 mg Documented by: Pantoprazole Sodium (Protonix) 40 mg PO ONETIME ONE Stop: 08/01/20 17:01 Last Admin: 08/01/20 17:18 Dose: 40 mg Documented by: Estradiol 0.1 Mg (Weekly Patch) 0 each TOP Fr@0900 [facility] Prochlorperazine Maleate (Compazine) 10 mg PO Q6H PRN PRN Reason: Nausea Sucralfate (Carafate) 1 gm PO QIDACANDBED [facility] Last Admin: 08/02/20 10:53 Dose: 1 gm Documented by: Sumatriptan Succinate (Imitrex) 50 mg PO ASDIRECTED PRN PRN Reason: Headache Venlafaxine HCl (Effexor Xr) 37.5 mg PO DAILY [facility] Last Admin: 08/02/20 08:46 Dose: 37.5 mg Documented by: Venlafaxine HCl (Effexor Xr) 150 mg PO DAILY [facility] Last Admin: 08/02/20 08:46 Dose: 150 mg Documented by:
[2020-08-03] MEDS ORDERED: ESTRADIOL 0.1 MG TOP SCH (09:00)
== END 2020-08-02 16:07 | disposition home or self-care (01) | DRG 810 ==
LOC: JD.MS 14:10 → OBSVTOIN 15:05
PROVIDERS: ADMIT Internal Medicine; ATTEND Internal Medicine
PROC: XW033N5 Introduction of Meropenem-vaborbactam Anti-infective into Peripheral Vein, Percutaneous Approach, New Technology Group 5 (ICD-10-PCS; principal; 2020-08-01)
DX: D70.1 Agranulocytosis secondary to cancer chemotherapy (principal); T45.1X5A Adverse effect of antineoplastic and immunosuppressive drugs, initial encounter; C50.912 Malignant neoplasm of unspecified site of left female breast; K21.9 Gastro-esophageal reflux disease without esophagitis; F41.9 Anxiety disorder, unspecified; D64.9 Anemia, unspecified; Z79.899 Other long term (current) drug therapy
CPT/HCPCS: 36415; 80053; 81003; 83735; 85007; 85027; A9270-GY; J1642; J2185; J3475; J7030